=== PATIENT | female | born 1945 | race Caucasian/White ===

== ENCOUNTER 2020-05-13 14:28 | Outpatient (CLI) | payer MEDICARE, SELFPAY ==
--- NOTE | ~2020-05-13 | XR_ITS ---
XR foot LT min 3V DATE: 05/13/2020 14:49 INDICATION: Left foot pain TECHNIQUE: Four views COMPARISON: None FINDINGS: Nonspecific soft tissue swelling. There is mild osteoarthritis at the first metatarsophalan geal joint. A small cortical avulsion fracture of the dorsal aspect of the tarsal navicular bone is suggested but is age indeterminate. Otherwise no fracture, dislocation, periosteal reaction or bone destruction is evident. IMPRESSION: Mild osteoarthritis at first metatarsophalangeal joint Small dorsal tarsal navicular cortical avulsion fracture of undetermined age is suggested Nonspecific soft tissue swelling. Reviewed, dictated and finalized at location A.
== END 2020-05-13 14:29 | disposition home or self-care (01) ==
LOC: ANHIMG 14:34
PROVIDERS: PCP Internal Medicine; Visit Provider Physician Assistant
DX: M79.672 Pain in left foot (principal); M19.072 Primary osteoarthritis, left ankle and foot; S92.315A Nondisplaced fracture of first metatarsal bone, left foot, initial encounter for closed fracture; M79.89 Other specified soft tissue disorders
CPT/HCPCS: 73630

== ENCOUNTER 2020-12-09 14:23 | Outpatient (CLI) | payer MEDICARE, SELFPAY ==
--- NOTE | 2020-12-09 14:35 | ECHO_ITS ---
Patient Info Name: Isela Shah Age: 75 years : 1945 Gender: Female Ht: 49 in Wt: 165 lbs BSA: 1.67 m2 HR: 78 bpm BP: 135 / 71 mmHg Technical Quality: Fair Exam Date: 12/09/2020 2:52 PM Exam Location: [facility] Patient Status: Outpatient Admit Date: 12/09/2020 Staff Ordering Physician: Brian Michelle DO Windows Server Specialist: Maritza Rothman RDCS Attending Provider: Brian Michelle DO Referring Physician: Miguel Angel TILLEY; Exam Type: CA echo doppler color flow Study Info Indications - obstructive hypertrophic cm Complete two-dimensional, color flow and Doppler transthoracic echocardiogram is performed. Summary 1. Complete two-dimensional, color flow and Doppler transthoracic echocardiogram is performed. 2. Left ventricular chamber dimension is normal. 3. Ventricular septum is sigmoid shaped. Mild resting LVOT gradient of peak 8 mmHg and mean 4 mmHg suggests hypertrophic cardiomyopathy. 4. Left ventricular systolic function is normal, estimated at 65-70%. 5. The left ventricular diastolic function is grade I diastolic dysfunction. 6. E/e' 23 is elevated. 7. Left atrial chamber dimension is mildly enlarged. 8. There is moderate aortic valve sclerosis. 9. There is mild aortic valve stenosis with a peak velocity of 231 cm/s, mean gradient of 12 mmHg, and aortic valve area of 1.9 cm2. 10. The mitral valve has moderately calcified annulus. 11. Mild systolic anterior motion of mitral valve. 12. There is mild mitral valve regurgitation. 13. There is trace tricuspid valve regurgitation. 14. No pulmonary hypertension, estimated pulmonary arterial systolic pressure is 31 mmHg. Left Ventricle E/e' 23 is elevated. Ventricular septum is sigmoid shaped. Mild resting LVOT gradient of peak 8 mmHg and mean 4 mmHg suggests hypertrophic cardiomyopathy. Left ventricular chamber dimension is normal. Left ventricular systolic function is normal, estimated at 65-70%. The left ventricular diastolic function is grade I diastolic dysfunction. Right Ventricle Right ventricular chamber dimension is normal. Right ventricular systolic function is normal. Left Atria Left atrial chamber dimension is mildly enlarged. Right Atria Right atrial chamber dimension is normal. Aortic Valve The aortic valve is trileaflet. There is moderate aortic valve sclerosis. There is mild aortic valve stenosis with a peak velocity of 231 cm/s, mean gradient of 12 mmHg, and aortic valve area of 1.9 cm2. There is no aortic valve regurgitation. Pulmonic Valve There is no pulmonic regurgitation. Mitral Valve The mitral valve has moderately calcified annulus. Mild systolic anterior motion of mitral valve. There is no mitral valve stenosis. There is mild mitral valve regurgitation. Tricuspid Valve There is trace tricuspid valve regurgitation. No pulmonary hypertension, estimated pulmonary arterial systolic pressure is 31 mmHg. Pericardium/Pleural There is no pericardial effusion. Inferior Vena Cava Normal inferior vena cava with >50% collapse upon inspiration consistent with normal right atrial pressure, 5 mmHg. Aorta The aortic root size at the sinus of Valsalva is normal. Left Ventricular Outflow Tract Name Value Normal LVOT 2D
== END 2020-12-09 14:24 | disposition home or self-care (01) ==
LOC: ANHCARD 14:25
PROVIDERS: PCP Internal Medicine; Visit Provider Internal Medicine Cardiovascular Disease
DX: I34.0 Nonrheumatic mitral (valve) insufficiency (principal); I36.1 Nonrheumatic tricuspid (valve) insufficiency; I35.1 Nonrheumatic aortic (valve) insufficiency
CPT/HCPCS: 93306

== ENCOUNTER 2021-01-15 12:27 | Inpatient (IN) | payer MEDICARE, SELFPAY ==
[2021-01-15] VITALS (8 sets, daily range): BP systolic 144–190; BP diastolic 43–104; PULSE 70–79; RESP 14–21; TEMP 36.2–36.8; O2SAT 97–99; BMI 35.2
--- NOTE | ~2021-01-15 | CT_ITS ---
EXAMINATION: CT brain wo con EXAM DATE: 01/15/2021 13:27 INDICATION: Right upper ext weakness. TECHNIQUE: Spiral CT of the head was performed without contrast. Axial, coronal and sagittal images were reviewed. The dose-length product (DLP) for this examination was 605.33 mGy-cm. The exposure w as tailored according to patient size, and iterative reconstruction (ASIR) was used as additional dos e reduction technique. There is no prior study for comparison. FINDINGS: Possible small acute infarction in the left parieto-occipital lobe, finding indicated on ax ial image 34. There is no acute intraparenchymal hemorrhage. No evidence of intraparenchymal brain m ass lesion. Mild cerebral atrophy. There is no mass effect or midline shift. The ventricles are no rmal in size. There are no extra-axial collections. There are no acute calvarial fractures. The orb its are unremarkable. Soft tissue is unremarkable. The visualized sinuses and mastoid air cells are well aerated. IMPRESSION: 1. Possible small acute left occipitoparietal lobe infarction. Reviewed, dictated and finalized at location A. [employer]OR [employer]
--- NOTE | ~2021-01-15 | CT_ITS ---
EXAMINATION: CTA brain carotid EXAM DATE: 01/16/2021 15:17 INDICATION: Stroke. TECHNIQUE: Noncontrast head CT. Spiral CTA of the carotid arteries was performed with intravenous i njection 100 cc of Omnipaque 350. Axial, coronal, sagittal reformatted images reviewed. Additional r eformatted images created on dedicated 3-D workstation. NASCET comparable standard used to assess th e degree of arterial stenosis. Spiral CT angiogram cerebral arteries performed with the same intrave nous injection of contrast. Source images of the brain CTA transferred to dedicated workstation for 3 -D rotational image creation. Coronal, sagittal maximum intensity pixel images also reviewed. The d ose-length product (DLP) for this examination was 1373.49 mGy-cm. The exposure was tailored accordi ng to patient size, and iterative reconstruction (ASIR) was used as additional dose reduction techniq ue. Correlation is made to head CT from yesterday. FINDINGS: Left carotid bulb has large amount of atherosclerotic disease with string sign, near comple te occlusion. There is significantly diminished caliber to the ICA distal to this consistent with chani w-limiting stenosis. There is mild right carotid bulb plaque without stenosis. Bilateral carotid siph on arterial sclerosis with regions of moderate stenosis. Vertebral arteries are codominant. There is no carotid or vertebral basilar arterial dissection or fibromuscular dysplasia. There are no cerebral artery aneurysms. There is symmetric cerebral artery arborization. The sagittal, transverse and sigm oid sinuses enhance normally, no venous sinus thrombosis. Internal cerebral veins also enhance normal ly. Interval development of multiple small regions of left frontoparietal hypodensity, small acute infarc tions as seen on MR earlier today. This is in the watershed distribution between between cerebral art eries, could be caused by hypoperfusion from the carotid bulb stenosis. There is no acute intraparenc hymal hemorrhage. No evidence of intraparenchymal brain mass lesion. There is no mass effect or midl ine shift. There is no obstructive hydrocephalus suspected. There are no extra-axial collections. T here are no calvarial acute fractures. IMPRESSION: 1. Near occlusion left carotid bulb with diminished ICA caliber, flow-limiting stenosis. Acute left- sided infarctions involving watershed distribution, likely result of hypoperfusion. 2. Mild right carotid bulb plaque, 0% stenosis. 3. Carotid siphon arterial sclerosis. I discussed this case with Radha Pablo PA-C at 01/16/2021 15:30 SENIOR MICROSTRATEGY DEVELOPER. Recommend vascular consult a nd not aggressively controlling any high blood pressure at this time. Reviewed, dictated and finalized at location B. OR MICROSTRATEGY DEVELOPER IMPRESSION: 1. Near occlusion left carotid bulb with diminished ICA caliber, flow-limiting stenosis. Acute left-sided infarctions involving watershed distribution, likel y result of hypoperfusion. 2. Mild right carotid bulb plaque, 0% stenosis. 3. Carotid siphon arterial sclerosis. I discussed this case with Radha Pablo PA-C at 01/16/2021 15:30 SENIOR MICROSTRATEGY DEVELOPER. Recomm end vascular consult and not aggressively controlling any high blood pressure a t this time.
--- NOTE | ~2021-01-15 | MR_ITS ---
EXAMINATION: MR brain/brain stem wo/w con DATE: 01/16/2021 08:47 INDICATION: Cerebral vascular accident. Right hemiparesis. TECHNIQUE: Magnetic resonance imaging (MRI) of the brain and brainstem was performed without and with 14 mL MultiHance intravenous contrast. Sequences included sagittal and axial T1-weighted FSE, axial diffusion-weighted FS EPI, axial T2*-weighted GRE, axial T2-weighted FLAIR Propeller, and axial T2-we ighted Propeller. Postcontrast sequences included axial and coronal T1-weighted FSE. Apparent diffusi on coefficient (ADC) maps were created. COMPARISON: Head CT 01/15/2021 FINDINGS: There is a large distribution of patchy acute infarcts involving the left frontal, temporal , parietal, and occipital lobes in the expected distribution of left middle cerebral artery. There is no intracranial hemorrhage or abnormal mass lesion. There are scattered areas of nonspecific increas ed T2-weighted signal intensity in the cerebral white matter, which is within normal limits for the p atient's age. The ventricles are normal in size. The orbits are normal. There is mild mucosal thicken ing in the ethmoid sinuses. The mastoid air cells are normal. IMPRESSION: 1. Large distribution of patchy acute infarcts in the distribution of the left middle cerebral artery . Reviewed, dictated and finalized at location A. ROOM ATTENDANT IMPRESSION: 1. Large distribution of patchy acute infarcts in the distribution of the left middle cerebral artery.
--- NOTE | ~2021-01-15 | US_ITS ---
EXAMINATION: US carotid duplex BI EXAM DATE: 01/16/2021 09:18 INDICATION: Multiple left cortical infarctions. TECHNIQUE: Grayscale, color and pulsed Doppler images of the cervical carotid arteries were obtained . The degree of vessel stenosis is placed in one of the following categories: normal, <50% stenosis, 50-69% stenosis, >=70% stenosis but less than near-occlusion, near-occlusion, or occlusion. Note that percent stenosis relative to normal distal artery lumen diameter is indirectly measured from velocit y measurements as described by Parveen, et al. Radiology 2003; 229:340-346. There is no prior study fo r comparison. FINDINGS: RIGHT SIDE: Right common carotid artery peak systolic velocity (PSV in cm/s): 92 Right bulb/internal carotid artery peak systolic velocity (PSV in cm/s): 74 Right internal carotid artery end diastolic velocity (EDV in cm/s): 16 Right ICA/CCA peak systolic ratio: 0.8 Right external carotid artery peak systolic velocity (PSV in cm/s): 102 Right vertebral artery antegrade flow: yes There is mild carotid bulb plaque. Velocity and Doppler waveforms in the common and internal carotid arteries is normal. LEFT SIDE: Left common carotid artery peak systolic velocity (PSV in cm/s): 62 Left bulb/internal carotid artery peak systolic velocity (PSV in cm/s): 185 Left internal carotid artery end diastolic velocity (EDV in cm/s): 35 Left ICA/CCA peak systolic ratio: 3.0 Left external carotid artery peak systolic velocity (PSV in cm/s): 114 Left vertebral artery antegrade flow: yes There is mild carotid bulb plaque. Velocity and Doppler waveforms in the common and internal carotid arteries is normal. IMPRESSION: 1. Less than 50 percent stenosis in the right internal carotid artery. 2. Less than 50 percent stenosis in the left internal carotid artery. Reviewed, dictated and finalized at location B. RESSOR BATTERY PELLETS
--- NOTE | ~2021-01-15 | US_ITS ---
EXAMINATION: US venous doppler UE RT EXAM DATE: 01/16/2021 09:19 INDICATION: Right arm swelling. Edema. TECHNIQUE: Multiple grayscale, color flow, Doppler sonographic images of the right upper extremity ve ins obtained by technologist. Compression was performed where able. There is no prior study for rené cordero. FINDINGS: Right upper extremity: Jugular vein: ------------> Normal. Subclavian vein: --------> Normal. Axillary vein:------------> Normal. Brachial vein:-----------> Normal. Basilic vein: ------------> Normal. Cephalic vein: ----------> Normal. Radial vein: ------------> Normal. Ulnar vein: > Normal. IMPRESSION: No deep venous thrombosis of the right upper extremity. Reviewed, dictated and finalized at location B. LE SETTER
--- NOTE | 2021-01-15 13:19 | ED.NEUROSD ---
HPI - Neuro Symptoms/Deficit General Chief Complaint: Extremity Injury, Upper Stated Complaint: right arm swelling and weakness since sats Time Seen by Provider: 01/15/21 12:55 Source: patient Mode of arrival: ambulatory Limitations: no limitations History of Present Illness HPI Narrative: Patient is a 75-year-old female complaining of right upper extremity weakness and numbness that started 4 days ago. Patient denies any speech or visual disturbance, unsteady gait, headache, dizziness, chest pain, shortness of breath abdominal pain, fever or chills. Related Data Home Medications Medication Instructions Recorded Confirmed ascorbic acid (vitamin C) 1,000 mg 1 gm PO DAILY 01/26/20 11/18/20 tablet coenzyme Q10 100 mg capsule 100 mg PO DAILY 01/26/20 11/18/20 multivitamin 1 tablet PO DAILY 01/26/20 11/18/20 vitamin E 1,000 unit/112 gram unit TOPICAL 01/26/20 11/18/20 topical cream cholecalciferol (vitamin D3) 25 25 mcg PO DAILY 05/19/20 11/18/20 mcg (1,000 unit) capsule mecobalamin (vitamin B12) 1,000 1,000 mcg PO DAILY 05/19/20 11/18/20 mcg chewable tablet allopurinol 300 mg tablet 300 mg PO DAILY 11/16/20 11/18/20 Allergies Allergy/AdvReac Type Severity Reaction Status Date / Time No Known Allergies Allergy Mild Verified 11/17/20 15:37 Review of Systems Review of Systems: All systems reviewed & are unremarkable except as noted in HPI and below Constitutional: Constitutional: Denies body ache(s), Denies chills, Denies excessive sweating, Denies fatigue, Denies fever(s), Denies headache(s), Denies lethargy, Denies malaise, Denies weakness and Denies weight loss Eyes: Eyes: Denies blurry vision, Denies change in vision and Denies loss of vision ENT: Denies dizziness, Denies ear discharge, Denies headache(s), Denies lip swelling, Denies epistaxis, Denies nasal congestion, Denies neck pain, Denies throat swelling and Denies tongue swelling Cardiovascular: Cardiovascular: Denies chest pain, Denies chest pain at rest, Denies chest pain with activity, Denies diaphoresis, Denies rapid heart rate, Denies edema, Denies irregular heart rhythm, Denies lightheadedness, Denies palpitations, Denies dyspnea and Denies dyspnea on exertion Respiratory: Respiratory: Denies chest congestion, Denies cough, Denies hemoptysis, Denies dyspnea and Denies dyspnea on exertion Gastrointestinal: Gastrointestinal: Denies abdominal pain, Denies melena, Denies hematochezia, Denies diarrhea, Denies nausea, Denies vomiting and Denies hematemesis Musculoskeletal: Musculoskeletal: Denies abnormal gait, Denies deformity, Denies joint swelling, Denies limited range of motion, Denies neck pain and Denies numbness Neurologic: Denies Abnormal speech present, Denies abnormal gait, Denies confusion, Denies dizziness, Denies headache(s), Denies loss of vision, Denies Other visual disturbances, Denies Sensory deficit (Neuro) and Denies weakness Psychiatric: Psychiatric: Denies confusion, Denies depression, Denies auditory hallucinations, Denies homicidal ideation and Denies suicidal ideation Endocrine: Endocrine: Denies cold intolerance, Denies excessive sweating, Denies fatigue, Denies heat intolerance and Denies palpitations Hematologic/Lymphatic: Hematologic/Lymphatic: Denies easy bleeding and Denies easy bruising Allergic/Immunologic: Allergic/Immunologic: Denies lip swelling, Denies throat swelling and Denies tongue swelling PMFSH Past Medical History Medical History (Updated 01/15/21 @ 13:27 by Reymundo Solorzano MD) Essential hypertension Hyperlipidemia Surgical History Surgical History H/O knee surgery Family History Family History Sibling Family history of diabetes mellitus in first degree relative Mother Family history of pancreatic cancer Patient's mother is Father Patient's father is Family history of c
--- NOTE | 2021-01-15 13:27 | ECG_ITS ---
Measurements Intervals [place] Rate: 72 P: 56 HI: 203 QRS: -24 QRSD: 89 T: 51 QT: 396 QTc: 435 Interpretive Statements SINUS RHYTHM VOLTAGE CRITERIA FOR LVH BORDERLINE R WAVE PROGRESSION, ANTERIOR LEADS MINIMAL Q WAVES- HIGH LATERAL LEADS BASELINE ARTIFACT- II, III, AVL, AVF BORDERLINE ECG Electronically Signed On 01-15-2021 14:25:13 PHYSICIAN GENERAL PRACTICE by Brian Michelle D.O.
[2021-01-15] MEDS: LACTATED RINGERS 1,000 ML 125 ML IV CONT (13:41)
[2021-01-15 14:12] LABS: Basophils Absolute Auto 0.1 K/mm3 (0.0-0.1); Basophils Percent Auto 1.1 % (0.2-1.2); Eosinophils Absolute Auto 0.3 K/mm3 (0-0.3); Eosinophils Percent Auto 2.5 % (0-4.4); Hematocrit 47.2 % (37.0-47.0); Hemoglobin 15.3 g/dL (12.0-15.0); Immature Granulocyte Absolute 0.04 K/mm3 (0.00-0.031); Immature Granulocyte Percent A 0.4 % (0-0.5); Lymphocytes Absolute Auto 2.54 K/mm3 (0.9-3.2); Lymphocytes Percent Auto 25.7 % (18.3-44.2); Mean Corpuscular HGB Conc 32.4 g/dl (32-36); Mean Corpuscular Hemoglobin 30.4 pg (26-34); Mean Corpuscular Volume 93.7 fl (80-100); Mean Platelet Volume 11.4 fl (7.4-10.4); Monocytes Absolute Auto 0.8 K/mm3 (0.1-0.6); Monocytes Percent Auto 8.1 % (2.6-8.5); Neutrophils Absolute Auto 6.1 K/mm3 (1.3-6.7); Neutrophils Percent Auto 62.2 % (45.5-73.1); Platelet Count Result 243 k/mm3 (150-375); Red Blood Count 5.04 M/mm3 (4.2-5.4); Red Cell Distribution Width 14.6 % (11.5-14.5); White Blood Count 9.9 K/mm3 (4.5-10.0)
[2021-01-15 14:24] LABS: Prothrombin Time 13.4 Seconds (11.1-14.7)
[2021-01-15 14:25] LABS: Partial Thromboplastin Time 27.2 SECONDS (22.3-36.8)
[2021-01-15 14:31] LABS: Alanine Aminotransferase 17 U/L (4-35); Albumin Level 4.3 g/dL (3.5-5.1); Alkaline Phosphatase 109 U/L (38-126); Anion Gap 4 mmol/L (8-16); Aspartate Amino Transferase 28 U/L (14-36); Bilirubin,Total 0.5 mg/dL (0.2-1.3); Blood Urea Nitrogen 14 mg/dL (7-17); Calcium 9.5 mg/dL (8.4-10.2); Carbon Dioxide 33 mmol/L (22-30); Chloride 105 mmol/L (98-107); Estimated Glomerular Filt Rate > 60; Glucose 93 mg/dL (65-105); Potassium 4.2 mmol/L (3.4-5.0); Sodium 142 mmol/L (137-145)
[2021-01-15 14:45] LABS: Troponin I < 0.012 ng/mL (0.000-0.034)
[2021-01-15] MEDS: ASPIRIN 325 MG TABLET PO (15:34)
[2021-01-15] MEDS: LABETALOL HCL INJ 100 MG/20 ML VIAL 10 MG IV PUSH (15:36)
--- NOTE | 2021-01-15 17:52 | PC.NURSE ---
This patient, Isela Shah, was admitted to Medical Room 340-01. Patient/family oriented to hospital policies and general routines including ID bracelet, bed and alarms, visiting hours, pain management, procedures, bathroom and other care routines, personal items, smoking policy, room service/diet, and visiting hours. Information on how to activate the Rapid Response Team has been discussed. Patient/Family are encouraged to report perceived risks to care and to ask questions if they do not understand what they are told or what they should do.
[2021-01-15 18:21] LABS: Troponin I < 0.012 ng/mL (0.000-0.034)
--- NOTE | 2021-01-15 18:47 | PC.NURSE ---
Son-in-law with patient. Patient nor son-in-law knows patient home medications. Home medication list left at home.
--- NOTE | 2021-01-15 18:50 | PC.NURSE ---
[facility] pharmacy closed.
--- NOTE | 2021-01-15 19:15 | PM.IMHP ---
H&P: HPI History of Present Illness Date/Time: 01/15/21 19:15 Chief Complaint: Right arm swelling and weakness. Narrative: This is a pleasant 75-year-old female with hypertension, hyperlipidemia, mild hypertrophic cardiomyopathy, and gout who presented to the emergency department earlier today from home for evaluation of right arm swelling and weakness. On afternoon she noticed that her right arm felt a little bit weak and got gradually more weak as the day progressed. Her symptoms were little bit better on Saturday morning but the right arm became profoundly more weak later that evening with numbness. It is now to the point where she is unable to lift her arm up without the help of her other hand, and she has also noticed swelling in the right arm. Brain CT today showed a possible small acute left occipital parietal lobe infarction and she is being admitted in this setting. Aside from the right arm weakness and numbness she has no other complaints and specifically denies auditory visual changes, vertigo, right leg weakness, facial droop, dysphagia, and dysarthria. She has no known history of cardiac dysrhythmia or carotid artery disease. She admits that her blood pressures are not always very well controlled and that she does not always take an aspirin daily as instructed. Review of Systems Review of Systems: Narrative: Twelve systems were reviewed with pertinent positives and negatives as per HPI. No fever, chills, or sweats. She denies recent cold and flu symptoms. No known exposure to those positive for COVID-19. Except as documented, all other systems were reviewed and are negative. [facility] Past Medical History Medical History (Updated 01/15/21 @ 22:56 by Felicitas Garcia PA-C) Arthritis Diverticulitis Essential hypertension Gout Hemorrhoids Hyperlipidemia Hypertrophic obstructive cardiomyopathy Followed by Dr. Brian Michelle. Macular degeneration Overflow stress urinary incontinence in female Surgical History Surgical History (Updated 01/15/21 @ 22:52 by Felicitas Garcia PA-C) History of ankle surgery ORIF of ankle fracture. History of arthroscopic knee surgery History of cervical polypectomy Family History Family History Sibling Family history of diabetes mellitus in first degree relative Mother Family history of pancreatic cancer Patient's mother is Father Patient's father is Family history of cardiovascular disease Family history of dementia Social History Social History (Updated 01/15/21 @ 22:53 by Felicitas Garcia PA-C) Social History: Surrogate decision maker: Yue Leija, daughter. Code status: Full code. 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 Gender identity (if verbalized by the patient): Female Spiritual care concerns: No Meds Home Medications and Allergies Home Medications Medication Instructions Recorded Confirmed Type ascorbic acid (vitamin C) 1,000 mg 1 gm PO DAILY 01/26/20 11/18/20 History tablet coenzyme Q10 100 mg capsule 100 mg PO DAILY 01/26/20 11/18/20 History multivitamin 1 tablet PO DAILY 01/26/20 11/18/20 History vitamin E 1,000 unit/112 gram unit TOPICAL 01/26/20 11/18/20 History topical cream metoprolol succinate 25 mg capsule 25 mg PO DAILY #90 each 02/25/20 11/18/20 Rx sprinkle, ext. release 24 hr cholecalciferol (vitamin D3) 25 25 mcg PO DAILY 05/19/20 11/18/20 History mcg (1,0
[2021-01-16] VITALS (10 sets, daily range): BP systolic 138–176; BP diastolic 62–75; PULSE 72–88; RESP 14–18; TEMP 36.2–36.9; O2SAT 92–98; BMI 36.3
--- NOTE | 2021-01-16 | ECHO_ITS ---
Patient Info Name: Isela Shah Age: 75 years : 1945 Gender: Female Ht: 57 in Wt: 162 lbs BSA: 1.76 m2 HR: 73 bpm BP: 160 / 67 mmHg Technical Quality: Good Exam Date: 01/16/2021 10:19 AM Exam Location: [facility] Patient Status: Inpatient Admit Date: 01/15/2021 Staff Ordering Physician: Felicitas Garcia PA-C Proposal Writer: Cristian Thornton RDCS, RT Attending Provider: Radha Pablo PA-C Referring Physician: Jose GARNER; Exam Type: CA echo doppler color flow Study Info Indications I63.119 - Cerebral infarction due to embolism of unspecified vertebral artery I10 - Essential (primary) hypertension Complete two-dimensional, color flow and Doppler transthoracic echocardiogram is performed. Summary 1. Complete two-dimensional, color flow and Doppler transthoracic echocardiogram is performed. 2. Left ventricular chamber dimension is normal. 3. Left ventricular systolic function is normal, estimated at 65-70%. 4. There is mildly increased left ventricular wall thickness. 5. The left ventricular diastolic function is grade I diastolic dysfunction. 6. Ventricular septum is sigmoid shaped. This is suggestive of hypertrophic cardiomyopathy with resting LVOT gradient peak 6 mmHg and mean 3 mmHg which is non-obstructive. 7. E/e' 23 is significantly elevated. 8. Global longitudinal strain is abnormal at -15.4%. 9. Left atrial chamber dimension is moderately enlarged. 10. There is severe aortic valve sclerosis. 11. There is mild aortic valve stenosis with a peak velocity of 215 cm/s, mean gradient of 9 mmHg, and aortic valve area of 1.8 cm2. 12. The mitral valve has moderately calcified annulus. 13. There is mild mitral valve regurgitation. 14. There is trace tricuspid valve regurgitation. Left Ventricle E/e' 23 is significantly elevated. Ventricular septum is sigmoid shaped. This is suggestive of hypertrophic cardiomyopathy with resting LVOT gradient peak 6 mmHg and mean 3 mmHg which is non-obstructive. Global longitudinal strain is abnormal at -15.4%. Left ventricular chamber dimension is normal. Left ventricular systolic function is normal, estimated at 65-70%. There is mildly increased left ventricular wall thickness. The left ventricular diastolic function is grade I diastolic dysfunction. Right Ventricle Right ventricular chamber dimension is normal. Right ventricular systolic function is normal. Left Atria Left atrial chamber dimension is moderately enlarged. Right Atria Right atrial chamber dimension is normal. Aortic Valve The aortic valve is trileaflet. There is severe aortic valve sclerosis. There is mild aortic valve stenosis with a peak velocity of 215 cm/s, mean gradient of 9 mmHg, and aortic valve area of 1.8 cm2. There is no aortic valve regurgitation. Pulmonic Valve There is no pulmonic regurgitation. Mitral Valve The mitral valve has moderately calcified annulus. There is no mitral valve stenosis. There is mild mitral valve regurgitation. Tricuspid Valve RVSP is not calculated due to an inadequate TR jet. There is trace tricuspid valve regurgitation. Pericardium/Pleural There is no pericardial effusion. Inferior Vena Cava Normal inferior vena cava with >50% collapse upon inspiration consistent with normal right atrial pressure, 5 mmHg. Aorta The aortic root size at the sinus of Valsalva is normal. Left Ventricular Outflow Tract
[2021-01-16 05:23] LABS: Hematocrit 38.4 % (37.0-47.0); Hemoglobin 12.9 g/dL (12.0-15.0); Mean Corpuscular HGB Conc 33.6 g/dl (32-36); Mean Corpuscular Hemoglobin 30.6 pg (26-34); Mean Platelet Volume 11.2 fl (7.4-10.4); Platelet Count Result 219 k/mm3 (150-375); Red Blood Count 4.22 M/mm3 (4.2-5.4); Red Cell Distribution Width 14.3 % (11.5-14.5); White Blood Count 11.1 K/mm3 (4.5-10.0)
[2021-01-16 05:35] LABS: Alanine Aminotransferase 14 U/L (4-35); Albumin Level 3.5 g/dL (3.5-5.1); Alkaline Phosphatase 82 U/L (38-126); Anion Gap 1 mmol/L (8-16); Aspartate Amino Transferase 22 U/L (14-36); Bilirubin,Total 0.4 mg/dL (0.2-1.3); Blood Urea Nitrogen 13 mg/dL (7-17); Calcium 8.8 mg/dL (8.4-10.2); Carbon Dioxide 29 mmol/L (22-30); Chloride 108 mmol/L (98-107); Cholesterol 159 mg/dL (0-200); Estimated Glomerular Filt Rate > 60; Glucose 96 mg/dL (65-105); HDL Direct 44 mg/dL; Magnesium 1.8 mg/dL (1.6-2.3); Potassium 3.9 mmol/L (3.4-5.0); Sodium 138 mmol/L (137-145); Triglycerides 61 mg/dL (<150)
[2021-01-16 05:46] LABS: LDL Cholesterol Direct 91 mg/dL
--- NOTE | 2021-01-16 09:06 | PC.NURSE ---
Home medications verified per Kate at [facility] pharmacy in [place]. Hospitalist notified.
--- NOTE | 2021-01-16 09:23 | WPDNEURCNPN ---
Assessment and Plan Assessment and plan (1) Acute cerebrovascular accident: Code(s): I63.9 - Cerebral infarction, unspecified Status: Acute (2) Hypertension: Qualifiers: Hypertension type: essential hypertension Qualified Code(s): I10 - Essential (primary) hypertension Code(s): I10 - Essential (primary) hypertension Status: Acute (3) Essential hypertension: Code(s): I10 - Essential (primary) hypertension Status: Acute Additional Plan left hemispheric stroke in the distribution of the left middle cerebral artery with patchy infarct on MRI, initial CT scan of the head was also positive with documentation of small acute left occipital parietal lobe infarction, carotid study revealed less than 50% stenosis bilateral, and as mentioned before right upper extremity venous Doppler study was negative for any deep vein thrombosis, echocardiogram in the past has documented moderately calcified mitral valve mild aortic valve stenosis with sclerosis, repeat echocardiogram is being carried out patient has already been started on aspirin 81 mg daily along with the pravastatin 20 mg daily,she did receive aspirin 325 mg stat once further adjustment will be made accordingly, once the acute evaluation completed she will benefit from the rehab Consult date: 01/16/21 Time Seen: 10:00 HPI: Isela Shah is a 75 year old female 75 years old has been admitted to the hospital for the complaints of right upper extremity weakness and swelling in addition to the ongoing history of 1. Hypertension 2. Hyperlipidemia 3. Mild hypertrophic cardiomyopathy 4. Gout by the time of presentation to the emergency room she was unable to lift her right upper extremity without help but she was also noted to have swelling of the right upper extremity there were no history of any other associated neurological symptomatology. evaluation documented mild leukocytosis with WBC 11.1 hemoglobin 12.9, ultrasound of the right upper extremity today documented no deep venous thrombosis, MRI of the brain with acute infarct in the distribution of the left middle cerebral artery, Doppler study less than 50% stenosis bilaterally Review of Systems Review of Systems: All systems reviewed & are unremarkable except as noted in HPI and below PMFSH Past Medical History Medical History Arthritis Diverticulitis Essential hypertension Gout Hemorrhoids Hyperlipidemia Hypertrophic obstructive cardiomyopathy Followed by Dr. Brian Michelle. Macular degeneration Overflow stress urinary incontinence in female Surgical History Surgical History History of ankle surgery ORIF of ankle fracture. History of arthroscopic knee surgery History of cervical polypectomy Family History Family History Sibling Family history of diabetes mellitus in first degree relative Mother Family history of pancreatic cancer Patient's mother is Father Patient's father is Family history of cardiovascular disease Family history of dementia Social History Social History Social History: Surrogate decision maker: Yue Leija, daughter. Code status: Full code. 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
[2021-01-16] MEDS: ASPIRIN 81 MG ENTERIC TABLET PO (09:37)
[2021-01-16] MEDS: allopurinoL 300 MG TABLET PO (09:56)
[2021-01-16] MEDS: PRAVASTATIN SODIUM 20 MG TABLET BY MOUTH (09:56)
[2021-01-16] MEDS: METOPROLOL SUCCINATE EXT REL 25 MG TABCR PO (09:56)
--- NOTE | 2021-01-16 14:38 | PM.IMPN ---
Progress Note: A&P Assessment and Plan (1) Acute cerebrovascular accident: Code(s): I63.9 - Cerebral infarction, unspecified Status: Acute Assessment and Plan: Patient has a large distribution of patchy acute infarcts in the left middle cerebral artery -carotid ultrasound is normal -echo shows no clot in the atrium -telemetry shows no sign of AFib at this time -NIHSS 6 which according to UTD recommends daily aspirin as treatment and no plavix to prevent HT -Changed pravastatin to atorvastatin -Will need therapy, await [facility] consult -Likely d/c to TRC tomorrow (2) Swelling of right upper extremity: Code(s): M79.89 - Other specified soft tissue disorders Status: Acute Assessment and Plan: No DVT -Continue elevation (3) Hypertension: Qualifiers: Hypertension type: essential hypertension Qualified Code(s): I10 - Essential (primary) hypertension Code(s): I10 - Essential (primary) hypertension Status: Acute Assessment and Plan: Last bp 138/62 -continue home metoprolol (4) Hyperlipidemia: Code(s): E78.5 - Hyperlipidemia, unspecified Status: Acute Assessment and Plan: Atorvastatin started (5) Hypertrophic obstructive cardiomyopathy: Code(s): I42.1 - Obstructive hypertrophic cardiomyopathy Status: Acute Assessment and Plan: Has a hx of this but our echo shows non obstructive hypertrophic cardiomyopathy. -Continue home regimen and follow up with cardiology out Time Spent With Patient Time with patient: 25 - 35 minutes Subjective Date/time seen: 01/16/21 14:38 Interval history: Pt is a 75-year-old female here for new onset stroke. Patient was seen today with daughter at bedside. Patient states she has a completely flaccid right arm and her right foot drags when she walks. She said she is able to speak okay and has had no issues with swallowing. I talked to her and her daughter extensively about the new diagnosis and the plan for therapy. Pt denies nausea, vomiting, fevers, chills, constipation, diarrhea, chest pain, sob, or abdominal pain. Review of Systems Review of Systems: All systems reviewed & are unremarkable except as noted in HPI and below Exam Narrative: Exam Narrative: General: Well developed well nourished patient in NAD HEENT: normocephalic Neck: supple Neuro: Alert and oriented x4. Cranial nerves 2-12 intact. Right arm completely flaccid with no inward toll operator strength or ability to hold against gravity. Lower extremities plantar and dorsiflexion is normal but right leg is weak when lifting off the bed. I did not personally see the patient walk but the nurse states she is dragging her right foot a bit CV:RRR, telemetry shows no alarm reviews other than occasional PVCs Resp:CTA Abd: Soft, non distended. No pain to palpation. Positive bowel sounds Extremities: No swelling, erythema, or pain to palpation of the lower extremity. Right arm swelling has improved with elevation. Objective Data Vital Signs Vital Signs: Vital Signs - 24 hr 01/15/21 14:59 01/15/21 15:37 01/15/21 15:48 Temperature Pulse Rate 77 75 72 Respiratory Rate 19 20 20 Blood Pressure 190/84 H 187/80 H 144/43 H Pulse Oximetry 97 97 99 01/15/21 17:28 01/15/21 17:54 01/15/21 19:32 Temperature 97.1 F L 98.2 F Pulse Rate 79 78 77 Respiratory Rate 21 H 18 14 Blood Pressure 145/70 H 175/73 H 151/71 H Pulse Oximetry 99 98 98 01/16/21 00:00 01/16/21 04:00 01/16/21 05:11 Temperature 98.5 F Pulse Rate 81 79 85 Respiratory Rate 14 Blood Pressure 160/67 H Pulse Oximetry 92 01/16/21 08:00 01/16/21 09:56 01/16/21 12:00 Temperature Pulse Rate 88 77 81 Respiratory Rate Blood Pressure Pulse Oximetry Intake/Output Intake/Output: Intake & Output 01/13/21 01/14/21 01/15/21 01/16/21 23:59 23:59 23:59 23:59 Intake Total 1280 Output Total 1150 Balance 130 Meds/
--- NOTE | 2021-01-16 18:54 | PC.NURSE ---
Patient being transferred to [facility] [address] bed 2; Report to BREANN Meng. [place] ETA [phone], trip number [phone].
[2021-01-17] VITALS: PULSE 67
[2021-01-17 12:21] LABS: SARS-CoV-2 RNA PCR Negative
--- NOTE | 2021-01-19 15:26 | PM.TDS ---
Transfer Discharge Sum: Prov Provider Date of admission: 01/15/21 16:26 Primary care physician: Cosme Ashton DO Admitting clinician: Kali Vance MD Consults: 01/15/21 15:39 Consult to Physician Routine Comment: Consulting Provider: Agustín Hodges Reason for consultation: ACUTE CVA Has provider been notified: Yes Attending physician on discharge: Patrick Stokes Discharging clinician: Radha Pablo Receiving physician/facility: [facility] DS: Admitting Diagnosis Admitting Diagnosis Admitting Diagnosis: Acute CVA DS: Discharge Diagnosis Discharge Diagnosis (1) Acute cerebrovascular accident: Code(s): I63.9 - Cerebral infarction, unspecified Status: Acute Assessment and Plan: Patient has a large distribution of patchy acute infarcts in the left middle cerebral artery -carotid ultrasound is normal -echo shows no clot in the atrium -telemetry shows no sign of AFib at this time -NIHSS 6 which according to UTD recommends daily aspirin as treatment and no plavix to prevent HT -Changed pravastatin to atorvastatin -CTA showed: Near occlusion left carotid bulb with diminished ICA caliber, flow-limiting stenosis. Acute left-sided infarctions involving watershed distribution, likely result of hypoperfusion. -Spoke with Dr. Parker at [facility] who accepted the pt in transfer for possible carotid endarterectomy (2) Swelling of right upper extremity: Code(s): M79.89 - Other specified soft tissue disorders Status: Acute Assessment and Plan: No DVT -Continue elevation (3) Hypertension: Qualifiers: Hypertension type: essential hypertension Qualified Code(s): I10 - Essential (primary) hypertension Code(s): I10 - Essential (primary) hypertension Status: Acute Assessment and Plan: Last bp 176/75 -recommend to keep the blood pressure high to help with perfusion. Metoprolol held (4) Hyperlipidemia: Code(s): E78.5 - Hyperlipidemia, unspecified Status: Acute Assessment and Plan: Atorvastatin started (5) Hypertrophic obstructive cardiomyopathy: Code(s): I42.1 - Obstructive hypertrophic cardiomyopathy Status: Acute Assessment and Plan: Has a hx of this but our echo shows non obstructive hypertrophic cardiomyopathy. -follow up with cardiology out Transfer Discharge Sum: Med Medications Active and Home Medications: Home Medications ascorbic acid (vitamin C) 1,000 mg tablet 1 gm PO DAILY 01/26/20 [History Confirmed 01/16/21] coenzyme Q10 100 mg capsule 100 mg PO DAILY 01/26/20 [History Confirmed 01/16/21] multivitamin 1 tablet PO DAILY 01/26/20 [History Confirmed 01/16/21] cholecalciferol (vitamin D3) 25 mcg (1,000 unit) capsule 25 mcg PO DAILY 05/19/20 [History Confirmed 01/16/21] mecobalamin (vitamin B12) 1,000 mcg chewable tablet 1,000 mcg PO DAILY 05/19/20 [History Confirmed 01/16/21] pravastatin 10 mg tablet 10 mg PO DAILY #90 tablet 07/06/20 [Rx Confirmed 01/16/21] allopurinol 300 mg tablet 300 mg PO DAILY 11/16/20 [History Confirmed 01/16/21] metoprolol succinate 25 mg PO DAILY 01/16/21 [History Confirmed 01/16/21] pravastatin 10 mg DAILY 01/16/21 [History Confirmed 01/16/21] Transfer Discharge Sum: Hosp Hospital Course Hospital course: Isela Shah is a 75 year old female who presented emergency room for right-sided weakness found to have acute CVA but was outside of the window the patient has been having symptoms for multiple days. She was admitted to the hospital service and underwent a CTA which showed Near occlusion left carotid bulb with diminished ICA caliber, flow-limiting stenosis. Acute left-sided infarctions involving watershed distribution, likely result of hypoperfusion. I contacted Dr. Parker at [facility] who recommended keeping her blood pressure high and transferring for possible carotid endarterectomy. The patient and family were educated about
== END 2021-01-17 01:25 | disposition short-term general hospital (02) | DRG 65 ==
LOC: ANHED 15:49 → ANH3MED 18:19
PROVIDERS: Physician Assistant; Admitting Provider Family Medicine; Emergency Provider Emergency Medicine; PCP Internal Medicine; Visit Provider Physician Assistant
DX: I63.512 Cerebral infarction due to unspecified occlusion or stenosis of left middle cerebral artery (principal); I42.1 Obstructive hypertrophic cardiomyopathy; G83.21 Monoplegia of upper limb affecting right dominant side; R29.706 NIHSS score 6; Z20.822 Contact with and (suspected) exposure to COVID-19; M79.89 Other specified soft tissue disorders; I10 Essential (primary) hypertension; E78.5 Hyperlipidemia, unspecified; M10.9 Gout, unspecified; Z28.21 Immunization not carried out because of patient refusal; Z87.891 Personal history of nicotine dependence; Z79.899 Other long term (current) drug therapy
CPT/HCPCS: 36415; 70450; 70496; 70498; 70553; 80053; 80061; 83735; 84443; 84484; 85025; 85027; 85610; 85730; 93005; 93306; 93880; 93971; 96374; 97161; 97165; 99285; A9270; A9577; C9803; G0378; J7120; Q9967; U0003; U0005

== ENCOUNTER 2021-01-24 18:55 | IRF | payer MEDICARE, SELFPAY ==
--- NOTE | 2021-01-24 18:55 | ADMGEN ---
This patient, Isela Shah, was admitted to [facility] Room 223-01. Patient/family oriented to hospital policies and general routines including ID bracelet, bed and alarms, visiting hours, pain management, procedures, bathroom and other care routines, personal items, smoking policy, room service/diet, and visiting hours. Information on how to activate the Rapid Response Team has been discussed. Patient/Family are encouraged to report perceived risks to care and to ask questions if they do not understand what they are told or what they should do.
[2021-01-24 19:55] VITALS: BMI 32.9
[2021-01-24 22:00] VITALS: BP 133/56; PULSE 61; RESP 16; TEMP 36.1; O2SAT 100
[2021-01-24] MEDS: TICAGRELOR 90 MG TABLET PO (22:44)
[2021-01-25 05:11] LABS: Basophils Absolute Auto 0.1 K/mm3 (0.0-0.1); Basophils Percent Auto 0.8 % (0.2-1.2); Eosinophils Absolute Auto 0.4 K/mm3 (0-0.3); Eosinophils Percent Auto 3.1 % (0-4.4); Hematocrit 32.9 % (37.0-47.0); Hemoglobin 10.7 g/dL (12.0-15.0); Immature Granulocyte Absolute 0.12 K/mm3 (0.00-0.031); Lymphocytes Absolute Auto 2.07 K/mm3 (0.9-3.2); Lymphocytes Percent Auto 18.1 % (18.3-44.2); Mean Corpuscular HGB Conc 32.5 g/dl (32-36); Mean Corpuscular Hemoglobin 30.7 pg (26-34); Mean Corpuscular Volume 94.5 fl (80-100); Monocytes Percent Auto 8.5 % (2.6-8.5); Neutrophils Absolute Auto 7.8 K/mm3 (1.3-6.7); Neutrophils Percent Auto 68.5 % (45.5-73.1); Platelet Count Result 275 k/mm3 (150-375); Red Blood Count 3.48 M/mm3 (4.2-5.4); Red Cell Distribution Width 14.7 % (11.5-14.5); White Blood Count 11.4 K/mm3 (4.5-10.0)
[2021-01-25 05:21] LABS: Anion Gap 3 mmol/L (8-16); Blood Urea Nitrogen 17 mg/dL (7-17); Calcium 8.6 mg/dL (8.4-10.2); Carbon Dioxide 30 mmol/L (22-30); Chloride 107 mmol/L (98-107); Cholesterol 117 mg/dL (0-200); Estimated Glomerular Filt Rate > 60; Glucose 99 mg/dL (65-105); HDL Direct 34 mg/dL; Potassium 3.9 mmol/L (3.4-5.0); Sodium 140 mmol/L (137-145); Triglycerides 64 mg/dL (<150)
[2021-01-25 05:32] LABS: LDL Cholesterol Direct 63 mg/dL
[2021-01-25 05:43] VITALS: BP 119/51; PULSE 88; RESP 16; TEMP 36.2; O2SAT 100
[2021-01-25 08:00] VITALS: PULSE 88; RESP 16; O2SAT 100
[2021-01-25] MEDS: ASPIRIN 81 MG ENTERIC TABLET PO (08:54)
[2021-01-25] MEDS: ATORVASTATIN 40 MG TABLET PO (08:55)
[2021-01-25] MEDS: ASCORBIC ACID 500 MG TABLET 1000 MG PO (08:55)
[2021-01-25] MEDS: allopurinoL 300 MG TABLET PO (08:55)
[2021-01-25] MEDS: TICAGRELOR 90 MG TABLET PO ×2 (08:55→21:35)
[2021-01-25] MEDS: lisinopriL 20 MG TABLET PO (08:55)
--- NOTE | 2021-01-25 10:54 | WPDREHABHP ---
H&P: HPI History of Present Illness Date/Time: 01/25/21 10:54 HISTORY OF PRESENT ILLNESS: This is a 75-year-old female with past medical history of adiposity, hypertension, hyperlipidemia, hypertrophic cardiomyopathy, and gout who presented [facility] on January 15, 2021 with progressive right upper extremity weakness. 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 CTA showed a near occlusion of her left carotid bulb and left-sided watershed infarcts. Dominic showed an ejection fraction of 76%. MRI showed large distribution of patchy infarcts in distribution of the left middle cerebral artery. Patient was transferred to [facility] on 01/17/2021 for further workup. Cardiology was consulted to assess cardiac risk for CEA and ordered at TTE showing narrowing of the LV OT with no obvious outflow tract obstruction ejection fraction of 70 segs 70 5%, grade 2 diastolic dysfunction with Shabbir enteric shaped LV cavity. Patient was deemed high risk for CEA/stenting. Patient also underwent angioplasty and stenting on 01/21/2021. The procedure was successful with no residual stenosis of the left MCA. There was an attempt to place a distal embolic protection, however, secondary to cervical ICA tortuosity / loops that was unable to be placed. Final angiography demonstrated no evidence of thromboembolic complications. There was a small right groin hematoma noted. Neurology was consulted patient was placed on Plavix and to continue with aspirin 325 mg daily. Postprocedure the patient presented with hypotension and required fluid and then a left Parres Afrin. Patient did require supplemental oxygen but is currently wean. Patient continued to have right upper extremity flaccidity with decreased safety awareness and decreased gross motor control with impaired balance. It was deemed to not be responsive to Plavix and she was switched to Brilinta 45 mg and ASA 325mg. THERAPY WAS INITIATED AT THE ACUTE FACILITY AND THE PATIENT TRANSFERRED TO [facility] ON 01/24/2021 The patient's primary rehab impairment category is Stroke The etiologic diagnosis is left occipital and parietal lobe infarct I saw this patient [id number] on 01/25/2021 COVID: The patient has not traveled outside the [place] or had contact with someone who is ill that has traveled outside the [place] in the past 21 days. Patient has not traveled to an area of the [place] that is experiencing known transmission of the Coronavirus has not had close personal contact with anyone that has. The patient does not have a fever. The patient is not experiencing lower respiratory illness symptoms. COVID test negative on 01/24/2021 FALLS OR SURGERIES: The patient has had major surgeries in the 100 days prior to admission. carotid stent placement They had no falls in the past year. They had no falls with injury in the past year. PAST MEDICAL HISTORY: [] PAST SURGICAL HISTORY: [] SOCIAL HISTORY: [] FAMILY HISTORY: [] PRIOR LEVEL OF FUNCTION: Eating was [INDEPENDENT] Oral Care was [INDEPENDENT] Toileting Hygiene was [INDEPENDENT] Shower/Bathing was [INDEPENDENT] Upper Body Dressing was [INDEPENDENT] Lower Body Dressing was [INDEPENDENT] Donning/[place] Footwear was [INDEPENDENT] Rolling Left and Right was [INDEPENDENT] Sit to Lying was [INDEPENDENT] Lying to Sitting was [INDEPENDENT] Sit to Stand was [INDEPENDENT] Bed to Chair Transfers was [INDEPENDENT] Toilet Transfers was [INDEPENDENT] Walking was [INDEPENDENT] [>500 feet] with [NO DEVICE] Wheelchair Mobility was [NOT APPLICABLE PRIOR TO ADMISSION] Stairs were [INDEPENDENT] CURRENT LEVEL OF FUNCTION: Eating was independent Oral Care was partial Toileting Hygiene was to moderate assist Shower/Bathing was partial to moderate assist Upper Body Dressing was partial to moderate assist Lower Body Dressing was substantial to maximal assistance Donning/Dof
[2021-01-25 11:31] VITALS: PULSE 88; RESP 16; O2SAT 100
[2021-01-25 13:33] VITALS: BMI 32.9
[2021-01-25 14:00] VITALS: BP 114/50; PULSE 87; RESP 18; TEMP 36.2; O2SAT 97
[2021-01-25] MEDS: ACETAMINOPHEN 325 MG TABLET 650 MG PO (14:44)
[2021-01-25] MEDS: CYCLOBENZAPRINE HCL 10 MG TABLET PO (17:43)
[2021-01-25 20:33] VITALS: BP 106/33; PULSE 76; RESP 20; TEMP 35.9; O2SAT 98
[2021-01-26 05:21] VITALS: BP 119/44; PULSE 77; RESP 18; TEMP 36.3; O2SAT 100
[2021-01-26] MEDS: ASCORBIC ACID 500 MG TABLET 1000 MG PO (08:24)
[2021-01-26] MEDS: ATORVASTATIN 40 MG TABLET PO (08:24)
[2021-01-26] MEDS: lisinopriL 20 MG TABLET PO (08:24)
[2021-01-26] MEDS: allopurinoL 300 MG TABLET PO (08:24)
[2021-01-26] MEDS: ASPIRIN 81 MG ENTERIC TABLET PO (08:24)
[2021-01-26] MEDS: TICAGRELOR 90 MG TABLET PO ×2 (08:24→21:12)
--- NOTE | 2021-01-26 11:55 | WPDNEURORHBP ---
Subjective Date/time seen: 01/26/21 11:55 Interval history: this is a 75-year-old female with past medical history of adiposity, hypertension, hyperlipidemia, hypertrophic cardiomyopathy, and gout who presented to [facility] on 01/15/2021 with right-sided weakness. 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 Patient was transferred to [place] on 01/17/2021 for further workup patient underwent angioplasty and stenting on 01/21/2021. Patient will remain on aspirin and Brilinta. Patient is complaining of left lateral hip pain with migration to the lateral hip to above the knee. Of note, patient had the symptoms while at [place]. Patient did state that the Flexeril was useful last night. Patient states pain is better. Review of Systems Review of Systems: All systems reviewed & are unremarkable except as noted in HPI and below Functional Status Ambulation Ability Ability to Ambulate 10 Feet: Contact Guard Ability to Ambulate 50 Feet With 2 Turns: Contact Guard Ambulation Assistive Devices: None Exam Narrative: Exam Narrative: Head is normocephalic.External ocular muscles are intact. Face is symmetrical. Speech is fluent. Cognition reveals problems with response time. Patient has delay with categorization. Sequencing is intact. Heart rate and rhythm is regular. Lungs are clear to auscultation. Abdomen is soft nontender. Musculoskeletal exam: Left upper and lower extremity strength are 4/5 right lower extremity strength is 4- out of 5 right upper extremity tone is flaccid. Strength is 1-2at shoulder, and distally it is trace. transfers at Min assist. Balance is fair plus to good minus. Objective Data Vital Signs Vital Signs: Vital Signs - 24 hr 01/25/21 14:00 01/25/21 20:33 01/26/21 05:21 Temperature 36.2 C L 35.9 C L 36.3 C L Pulse Rate 87 76 77 Respiratory Rate 18 20 18 Blood Pressure 114/50 L 106/33 L 119/44 L Pulse Oximetry 97 98 100 Intake/Output Intake/Output: Intake & Output 01/23/21 01/24/21 01/25/21 01/26/21 23:59 23:59 23:59 23:59 Intake Total 960 240 Balance 960 240 Meds/Results Medications: Active Medications Generic Name Dose Route Start Last Admin Trade Name Freq PRN Reason Stop Dose Admin Acetaminophen 650 mg 01/25/21 14:04 01/25/21 14:44 Acetaminophen 325 Mg Tablet PO 650 mg Q4H PRN Administration Headache Hydrocodone Bitart/Acetaminophen 1 tab 01/25/21 17:16 Hydrocodone/Acetaminophen (*Crx) 5-325 Mg Tablet PO Q6H PRN Pain Rated 6 or Greater Allopurinol 300 mg 01/25/21 08:00 01/26/21 08:24 Allopurinol 300 Mg Tablet PO 300 mg DAILY@0800 FLORIN Administration Ascorbic Acid 1,000 mg 01/25/21 09:00 01/26/21 08:24 Ascorbic Acid 500 Mg Tablet PO 1,000 mg DAILY FLORIN Administration Aspirin 81 mg 01/25/21 09:00 01/26/21 08:24 Aspirin 81 Mg Enteric Tablet PO 81 mg DAILY FLORIN Administration Atorvastatin Calcium 40 mg 01/25/21 09:00 01/26/21 08:24 Atorvastatin 40 Mg Tablet PO 40 mg DAILY FLORIN Administration Cyclobenzaprine HCl 10 mg 01/25/21 17:15 01/25/21 17:43 Cyclobenzaprine Hcl 10 Mg Tablet PO 10 mg Q8H PRN Administration Muscle Spasm Lisinopril 20 mg 01/25/21 09:00 01/26/21 08:24 Lisinopril 20 Mg Tablet PO 20 mg DAILY FLORIN Administration Ticagrelor 90 mg 01/24/21 22:10 01/26/21 08:24 Ticagrelor 90 Mg Tablet PO 90 mg Q12HR FLORIN Administration Progress Note: A&P Assessment and Plan (1) Right hemiplegia: Code(s): G81.91 - Hemiplegia, unspecified affecting right dominant side Status: Acute (2) Acute cerebrovascular accident: Code(s): I63.9 - Cerebral infarction, unspecified Status: Acute (3) Hypertrophic obstructive cardiomyopathy: Code(s): I42.1 - Obstructive hypertrophic cardiomyopathy Status: Acute (4) Adiposity: Code(s): E66.9 - Obesity, unspecified Statu
[2021-01-26 14:00] VITALS: BP 108/61; PULSE 83; RESP 18; TEMP 36.2; O2SAT 98
--- NOTE | 2021-01-26 15:45 | RPD ---
INDIVIDUALIZED PLAN OF CARE FOR Isela Shah Brief Synthesis of Pre-Admission Screen, Post-Admission Evaluation and Therapy Evaluations: The patient presents to rehab with a left occipital and parietal lobe infarct. Comorbidities include:Hypertension, obesity, right upper extremity weakness, occlusion of left carotid bulb status post stent placement, gout, hyperlipidemia. The patient requires physician services for medical oversight, management of any medical complications in addition to comorbidities, and coordination of care. Emotional needs will be monitored as depression is a common sequelae of stroke. The patient needs physician monitoring and treatment of anemia, post-procedure hypotension, hypertension, hypokalemia, hypocalcemia, leukocytosis, gout, monitoring for adverse reactions to new medications, monitoring of infection, and pain control. The patient requires nursing services for frequent neuro checks, anticoagulation therapy, medication management and education, pressure relief and skin care management, monitoring of labs, groin puncture wound care, and fall/safety precautions. Deficits include:ADLs, Balance, Endurance, Family Training/Education, Mobility, Pain Management, ROM, Safety, Strength, Transfers Anchor Tacker/Case Management for: Discharge Planning and Patient/Family Counseling Physical Therapy: 5 days per week for 75 minutes for the anticipated length of stay. Treatments may include: Therapeutic Exercise, Gait Training, Neuromuscular Re-education, Transfer Training, Community Reintegration, Bed Mobility, Patient/Family Education, Wheelchair Mobility Group Therapy/Concurrent Therapy Rationales: -Improve attention span during functional activities in a distracted environment. -Enhance problem solving and/or adequate judgment skills during functional activities in a distracted environment. -Promote increased safety awareness in a distracted environment to reduce fall risk with functional tasks, transfers, and ambulation to allow a more safe, self-sufficient return to the home environment. -Improve dynamic balance skills to promote safety and independence with functional activities in a distracted environment for maximum gain. Occupational Therapy: 5 days per week for 75 minutes for the anticipated length of stay. Treatments may include: Therapeutic Exercise, Therapeutic Activity, Cognitive Training, Self-Care Transfer Training, Community Reintegration, Home Management, Patient/Family Education, Wheelchair Mobility Training, Energy Conservation Training Group Therapy/Concurrent Therapy Rationales: -Allow therapist to observe and teach generalization and carry-over of skills learned in individual therapy. -Enhance problem solving and sequencing skills during therapeutic activities in a distracted environment. -Promote increased safety awareness in a realistic setting to reduce fall risk with functional tasks due to visual and verbal distractions. -Increase functional level with ADLs, ADL transfers and use of adaptive equipment through therapeutic activities with others while promoting safety to allow a more safe, self-sufficient return home. Speech Therapy: 5 days per week for 30 minutes for the anticipated length of stay. Treatments may include: Dysphasia Therapy, Speech/Language/Communication Therapy, Cognitive Training, Patient/Family Education Group Therapy/Concurrent Therapy - Rationale: -Allow therapist to observe and teach generalization and carry-over of skills learned in individual therapy. -Improve comprehension skills with complex or abstract ideas through discussion in a realistic setting. -Enhance problem solving skills with complex issues during activities in a distracted environment. -Promote increased memory skills and concentration in a distracted environment for a safe transition home. -Improve attention and focus with language/communication skills in a realistic and supportive therapeutic setting. -Allow for practice of exp
[2021-01-26 20:24] VITALS: BP 121/52; PULSE 82; RESP 20; TEMP 36.1; O2SAT 98
[2021-01-27 05:22] VITALS: BP 123/47; PULSE 82; RESP 18; TEMP 36.4; O2SAT 99
[2021-01-27 08:00] VITALS: PULSE 82; RESP 18; O2SAT 99
[2021-01-27] MEDS: ATORVASTATIN 40 MG TABLET PO (08:55)
[2021-01-27] MEDS: ASPIRIN 81 MG ENTERIC TABLET PO (08:55)
[2021-01-27] MEDS: TICAGRELOR 90 MG TABLET PO ×2 (08:56→20:33)
[2021-01-27] MEDS: ASCORBIC ACID 500 MG TABLET 1000 MG PO (08:56)
[2021-01-27] MEDS: allopurinoL 300 MG TABLET PO (08:56)
[2021-01-27] MEDS: lisinopriL 20 MG TABLET PO (08:56)
[2021-01-27 10:32] VITALS: PULSE 94; O2SAT 99
--- NOTE | 2021-01-27 12:03 | WPDNEURORHBP ---
Subjective Date/time seen: 01/27/21 12:03 Interval history: this is a 75-year-old female with past medical history of adiposity, hypertension, hyperlipidemia, hypertrophic cardiomyopathy, and gout who presented to [facility] on 01/15/2021 with right-sided weakness. 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 Patient was transferred to [facility] on 01/17/2021 for further workup patient underwent angioplasty and stenting on 01/21/2021. Patient will remain on aspirin and Brilinta. Patient denies left hip pain. Review of Systems Review of Systems: All systems reviewed & are unremarkable except as noted in HPI and below Functional Status Ambulation Ability Ability to Ambulate 10 Feet: Contact Guard Ability to Ambulate 50 Feet With 2 Turns: Contact Guard Ambulation Assistive Devices: None Exam Narrative: Exam Narrative: Head is normocephalic.External ocular muscles are intact. Face is symmetrical. Speech is fluent. Cognition is improving Patient has delay with categorization. Sequencing is intact. Heart rate and rhythm is regular. Lungs are clear to auscultation. Abdomen is soft nontender. Musculoskeletal exam: Left upper and lower extremity strength are 4/5 right lower extremity strength is 4- out of 5 right upper extremity tone is flaccid. Strength is 1-2at shoulder, and distally it is trace. Motor recovery noted transfers at supervision. Gait is 70 ft with CGA. Balance is fair plus to good minus. Objective Data Vital Signs Vital Signs: Vital Signs - 24 hr 01/26/21 14:00 01/26/21 20:24 01/27/21 05:22 Temperature 36.2 C L 36.1 C L 36.4 C L Pulse Rate 83 82 82 Respiratory Rate 18 20 18 Blood Pressure 108/61 121/52 L 123/47 L Pulse Oximetry 98 98 99 01/27/21 08:00 01/27/21 10:32 Temperature Pulse Rate 82 94 Respiratory Rate 18 Blood Pressure Pulse Oximetry 99 99 Intake/Output Intake/Output: Intake & Output 01/24/21 01/25/21 01/26/21 01/27/21 23:59 23:59 23:59 23:59 Intake Total 960 720 480 Balance 960 720 480 Meds/Results Medications: Active Medications Generic Name Dose Route Start Last Admin Trade Name Freq PRN Reason Stop Dose Admin Acetaminophen 650 mg 01/25/21 14:04 01/25/21 14:44 Acetaminophen 325 Mg Tablet PO 650 mg Q4H PRN Administration Headache Hydrocodone Bitart/Acetaminophen 1 tab 01/25/21 17:16 Hydrocodone/Acetaminophen (*Crx) 5-325 Mg Tablet PO Q6H PRN Pain Rated 6 or Greater Allopurinol 300 mg 01/25/21 08:00 01/27/21 08:56 Allopurinol 300 Mg Tablet PO 300 mg DAILY@0800 FLORIN Administration Ascorbic Acid 1,000 mg 01/25/21 09:00 01/27/21 08:56 Ascorbic Acid 500 Mg Tablet PO 1,000 mg DAILY FLORIN Administration Aspirin 81 mg 01/25/21 09:00 01/27/21 08:55 Aspirin 81 Mg Enteric Tablet PO 81 mg DAILY FLORIN Administration Atorvastatin Calcium 40 mg 01/25/21 09:00 01/27/21 08:55 Atorvastatin 40 Mg Tablet PO 40 mg DAILY FLORIN Administration Cyclobenzaprine HCl 10 mg 01/25/21 17:15 01/25/21 17:43 Cyclobenzaprine Hcl 10 Mg Tablet PO 10 mg Q8H PRN Administration Muscle Spasm Lisinopril 20 mg 01/25/21 09:00 01/27/21 08:56 Lisinopril 20 Mg Tablet PO 20 mg DAILY FLORIN Administration Ticagrelor 90 mg 01/24/21 22:10 01/27/21 08:56 Ticagrelor 90 Mg Tablet PO 90 mg Q12HR FLORIN Administration Progress Note: A&P Assessment and Plan (1) Right hemiplegia: Code(s): G81.91 - Hemiplegia, unspecified affecting right dominant side Status: Acute (2) Acute cerebrovascular accident: Code(s): I63.9 - Cerebral infarction, unspecified Status: Acute (3) Hypertrophic obstructive cardiomyopathy: Code(s): I42.1 - Obstructive hypertrophic cardiomyopathy Status: Acute (4) Adiposity: Code(s): E66.9 - Obesity, unspecified Status: Acute (5) Hypertension: Qualifiers: Hy
[2021-01-27 14:00] VITALS: BP 128/56; PULSE 90; RESP 18; TEMP 36.3; O2SAT 98
[2021-01-27] MEDS: CYCLOBENZAPRINE HCL 10 MG TABLET PO (18:13)
[2021-01-27 22:00] VITALS: BP 132/62; PULSE 94; RESP 16; TEMP 36.1; O2SAT 97
[2021-01-27] MEDS: HYDROcodone/acetaminophen (*CRX) 5-325 MG TABLET 1 TAB PO (22:37)
[2021-01-28 04:57] VITALS: BP 104/40; PULSE 75; RESP 14; TEMP 35.9; O2SAT 98
[2021-01-28 08:00] VITALS: PULSE 75; RESP 14; O2SAT 98
[2021-01-28] MEDS: ASPIRIN 81 MG ENTERIC TABLET PO (08:18)
[2021-01-28] MEDS: ATORVASTATIN 40 MG TABLET PO (08:18)
[2021-01-28] MEDS: ASCORBIC ACID 500 MG TABLET 1000 MG PO (08:18)
[2021-01-28] MEDS: allopurinoL 300 MG TABLET PO (08:18)
[2021-01-28] MEDS: TICAGRELOR 90 MG TABLET PO ×2 (08:19→20:37)
[2021-01-28] MEDS: lisinopriL 20 MG TABLET PO (08:19)
[2021-01-28] MEDS: CYCLOBENZAPRINE HCL 10 MG TABLET PO (08:20)
--- NOTE | 2021-01-28 10:04 | WPDNEURORHBP ---
Subjective Date/time seen: 01/28/21 10:04 Interval history: This is a 75-year-old female with past medical history of adiposity, hypertension, hyperlipidemia, hypertrophic cardiomyopathy, and gout who presented to [facility] on 01/15/2021 with right-sided weakness. 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 Patient was transferred to [place] on 01/17/2021 for further workup patient underwent angioplasty and stenting on 01/21/2021. Patient will remain on aspirin and Brilinta. Patient admits to left hip pain again. Encouraged patient to take Flexeril at prn. Patient voices no other complaint Review of Systems Review of Systems: All systems reviewed & are unremarkable except as noted in HPI and below Functional Status Ambulation Ability Ability to Ambulate 10 Feet: Standby Assistance Ability to Ambulate 50 Feet With 2 Turns: Standby Assistance Ambulation Assistive Devices: None Exam Narrative: Exam Narrative: Head is normocephalic.External ocular muscles are intact. Face is symmetrical. Speech is fluent. Cognition is improving. Mood is bright. Patient has delay with categorization and sequencing is intact. Heart rate and rhythm is regular. Lungs are clear to auscultation. Abdomen is soft nontender. Musculoskeletal exam: Left upper and lower extremity strength are 4/5 right lower extremity strength is 4- out of 5 right upper extremity tone is flaccid. Strength is 1-2at shoulder, and distally it is trace. Motor recovery noted in a flexor synergy pattern. Transfers at supervision. Gait is 70 ft with CGA. Balance is fair plus to good minus. Continue with RUE modalities and strengthening. Objective Data Vital Signs Vital Signs: Vital Signs - 24 hr 01/27/21 10:32 01/27/21 14:00 01/27/21 22:00 Temperature 36.3 C L 36.1 C L Pulse Rate 94 90 94 Respiratory Rate 18 16 Blood Pressure 128/56 L 132/62 Pulse Oximetry 99 98 97 01/28/21 04:57 Temperature 35.9 C L Pulse Rate 75 Respiratory Rate 14 Blood Pressure 104/40 L Pulse Oximetry 98 Intake/Output Intake/Output: Intake & Output 01/25/21 01/26/21 01/27/21 01/28/21 23:59 23:59 23:59 23:59 Intake Total 960 720 960 240 Balance 960 720 960 240 Meds/Results Medications: Active Medications Generic Name Dose Route Start Last Admin Trade Name Ford PRN Reason Stop Dose Admin Acetaminophen 650 mg 01/25/21 14:04 01/25/21 14:44 Acetaminophen 325 Mg Tablet PO 650 mg Q4H PRN Administration Headache Hydrocodone Bitart/Acetaminophen 1 tab 01/25/21 17:16 01/27/21 22:37 Hydrocodone/Acetaminophen (*Crx) 5-325 Mg Tablet PO 1 tab Q6H PRN Administration Pain Rated 6 or Greater Allopurinol 300 mg 01/25/21 08:00 01/28/21 08:18 Allopurinol 300 Mg Tablet PO 300 mg DAILY@0800 FLORIN Administration Ascorbic Acid 1,000 mg 01/25/21 09:00 01/28/21 08:18 Ascorbic Acid 500 Mg Tablet PO 1,000 mg DAILY FLORIN Administration Aspirin 81 mg 01/25/21 09:00 01/28/21 08:18 Aspirin 81 Mg Enteric Tablet PO 81 mg DAILY FLORIN Administration Atorvastatin Calcium 40 mg 01/25/21 09:00 01/28/21 08:18 Atorvastatin 40 Mg Tablet PO 40 mg DAILY FLORIN Administration Cyclobenzaprine HCl 10 mg 01/25/21 17:15 01/28/21 08:20 Cyclobenzaprine Hcl 10 Mg Tablet PO 10 mg Q8H PRN Administration Muscle Spasm Lisinopril 20 mg 01/25/21 09:00 01/28/21 08:19 Lisinopril 20 Mg Tablet PO 20 mg DAILY FLORIN Administration Ticagrelor 90 mg 01/24/21 22:10 01/28/21 08:19 Ticagrelor 90 Mg Tablet PO 90 mg Q12HR FLORIN Administration Progress Note: A&P Assessment and Plan (1) Right hemiplegia: Code(s): G81.91 - Hemiplegia, unspecified affecting right dominant side Status: Acute (2) Acute cerebrovascular accident: Code(s): I63.9 - Cerebral infarction, unspecified Status: Acute Assessment and Plan: ASA. Debora Riojas
[2021-01-28 14:00] VITALS: BP 107/48; PULSE 85; RESP 18; TEMP 36.4; O2SAT 97
[2021-01-28 22:00] VITALS: BP 125/66; PULSE 85; RESP 20; TEMP 36.6; O2SAT 100
[2021-01-29 06:00] VITALS: BP 130/56; PULSE 88; RESP 18; TEMP 36.6; O2SAT 100
[2021-01-29] MEDS: ASCORBIC ACID 500 MG TABLET 1000 MG PO (08:25)
[2021-01-29] MEDS: TICAGRELOR 90 MG TABLET PO ×2 (08:25→20:27)
[2021-01-29] MEDS: ATORVASTATIN 40 MG TABLET PO (08:25)
[2021-01-29] MEDS: ASPIRIN 81 MG ENTERIC TABLET PO (08:25)
[2021-01-29] MEDS: allopurinoL 300 MG TABLET PO (08:25)
[2021-01-29] MEDS: lisinopriL 20 MG TABLET PO (08:25)
--- NOTE | 2021-01-29 08:29 | WPDNEURORHBP ---
Subjective Date/time seen: 01/29/21 08:29 Interval history: This is a 75-year-old female with past medical history of adiposity, hypertension, hyperlipidemia, hypertrophic cardiomyopathy, and gout who presented to [facility] on 01/15/2021 with right-sided weakness. 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 Patient was transferred to [place] on 01/17/2021 for further workup patient underwent angioplasty and stenting on 01/21/2021. Patient will remain on aspirin and Brilinta. Patient denies left hip pain today. Patient is taking Flexeril at night. Patient voices no other complaint Review of Systems Review of Systems: All systems reviewed & are unremarkable except as noted in HPI and below Functional Status Ambulation Ability Ability to Ambulate 10 Feet: Minimum Assistance X 1 Ability to Ambulate 50 Feet With 2 Turns: Minimum Assistance X 1 Ambulation Assistive Devices: None Exam Narrative: Exam Narrative: Head is normocephalic.External ocular muscles are intact. Face is symmetrical. Speech is fluent. Cognition is improving. Mood is bright. Patient has delay with categorization and sequencing is intact. Heart rate and rhythm is regular. Lungs are clear to auscultation. Abdomen is soft nontender. Musculoskeletal exam: Left upper and lower extremity strength are 4/5 right lower extremity strength is 4- out of 5 right upper extremity tone is flaccid. Strength is 1-2at shoulder, and distally it is trace. Motor recovery noted in a flexor synergy pattern. Transfers at supervision. Gait is 70 ft with CGA. Balance is fair plus to good minus. Continue with RUE modalities and strengthening. Objective Data Vital Signs Vital Signs: Vital Signs - 24 hr 01/28/21 14:00 01/28/21 22:00 01/29/21 06:00 Temperature 36.4 C 36.6 C 36.6 C Pulse Rate 85 85 88 Respiratory Rate 18 20 18 Blood Pressure 107/48 L 125/66 130/56 L Pulse Oximetry 97 100 100 Intake/Output Intake/Output: Intake & Output 01/26/21 01/27/21 01/28/21 01/29/21 23:59 23:59 23:59 23:59 Intake Total 720 960 720 Balance 720 960 720 Meds/Results Medications: Active Medications Generic Name Dose Route Start Last Admin Trade Name Freq PRN Reason Stop Dose Admin Acetaminophen 650 mg 01/25/21 14:04 01/25/21 14:44 Acetaminophen 325 Mg Tablet PO 650 mg Q4H PRN Administration Headache Hydrocodone Bitart/Acetaminophen 1 tab 01/25/21 17:16 01/27/21 22:37 Hydrocodone/Acetaminophen (*Crx) 5-325 Mg Tablet PO 1 tab Q6H PRN Administration Pain Rated 6 or Greater Allopurinol 300 mg 01/25/21 08:00 01/29/21 08:25 Allopurinol 300 Mg Tablet PO 300 mg DAILY@0800 FLORIN Administration Ascorbic Acid 1,000 mg 01/25/21 09:00 01/29/21 08:25 Ascorbic Acid 500 Mg Tablet PO 1,000 mg DAILY FLORIN Administration Aspirin 81 mg 01/25/21 09:00 01/29/21 08:25 Aspirin 81 Mg Enteric Tablet PO 81 mg DAILY FLORIN Administration Atorvastatin Calcium 40 mg 01/25/21 09:00 01/29/21 08:25 Atorvastatin 40 Mg Tablet PO 40 mg DAILY FLORIN Administration Cyclobenzaprine HCl 10 mg 01/25/21 17:15 01/28/21 08:20 Cyclobenzaprine Hcl 10 Mg Tablet PO 10 mg Q8H PRN Administration Muscle Spasm Lisinopril 20 mg 01/25/21 09:00 01/29/21 08:25 Lisinopril 20 Mg Tablet PO 20 mg DAILY FLORIN Administration Sodium Chloride 1 spray 01/28/21 17:25 Saline 0.65% Steven Soln 44 Ml Btl NASAL Q6HR PRN Congestion Ticagrelor 90 mg 01/24/21 22:10 01/29/21 08:25 Ticagrelor 90 Mg Tablet PO 90 mg Q12HR FLORIN Administration Progress Note: A&P Assessment and Plan (1) Right hemiplegia: Code(s): G81.91 - Hemiplegia, unspecified affecting right dominant side Status: Acute (2) Acute cerebrovascular accident: Code(s): I63.9 - Cerebral infarction, unspecified Status: Acute Assessment and Plan: ASA. Lipitor, Brilinta (3) H
[2021-01-29] MEDS: ACETAMINOPHEN 325 MG TABLET 650 MG PO (09:25)
[2021-01-29] MEDS: CYCLOBENZAPRINE HCL 10 MG TABLET PO (13:50)
[2021-01-29 14:00] VITALS: BP 136/54; PULSE 80; RESP 18; TEMP 36.3; O2SAT 98
[2021-01-29 22:00] VITALS: BP 118/49; PULSE 84; RESP 18; TEMP 36; O2SAT 98
[2021-01-30 06:00] VITALS: BP 112/49; PULSE 84; RESP 16; TEMP 36.2; O2SAT 97
[2021-01-30 08:00] VITALS: PULSE 84; RESP 16; O2SAT 97
[2021-01-30] MEDS: allopurinoL 300 MG TABLET PO (08:29)
[2021-01-30] MEDS: TICAGRELOR 90 MG TABLET PO ×2 (08:29→20:28)
[2021-01-30] MEDS: ATORVASTATIN 40 MG TABLET PO (08:29)
[2021-01-30] MEDS: lisinopriL 20 MG TABLET PO (08:29)
[2021-01-30] MEDS: ASPIRIN 81 MG ENTERIC TABLET PO (08:29)
[2021-01-30] MEDS: ASCORBIC ACID 500 MG TABLET 1000 MG PO (08:29)
[2021-01-30] MEDS: SALINE 0.65% NAS SOLN 44 ML BTL 1 SPRAY NASAL (08:31)
--- NOTE | 2021-01-30 11:03 | WPDNEURORHBP ---
Subjective Date/time seen: 01/30/21 11:03 Interval history: This is a 75-year-old female with past medical history of adiposity, hypertension, hyperlipidemia, hypertrophic cardiomyopathy, and gout who presented to [facility] on 01/15/2021 with right-sided weakness. 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 Patient was transferred to [place] on 01/17/2021 for further workup patient underwent angioplasty and stenting on 01/21/2021. Patient will remain on aspirin and Brilinta. Patient seen in during ADLS. Mood is bright. Patient denies hip pain this morning. Patient is taking Flexeril at night. Patient voices no other complaint Review of Systems Review of Systems: All systems reviewed & are unremarkable except as noted in HPI and below Functional Status Ambulation Ability Ability to Ambulate 10 Feet: Standby Assistance Ability to Ambulate 50 Feet With 2 Turns: Standby Assistance Ability to Ambulate 150 Feet: Contact Guard Ambulation Assistive Devices: Cane, Small Base Quad Exam Narrative: Exam Narrative: Head is normocephalic.External ocular muscles are intact. Face is symmetrical. Speech is fluent. Cognition is improving. Mood is bright. Patient has delay with categorization and sequencing is intact. Heart rate and rhythm is regular. Lungs are clear to auscultation. Abdomen is soft nontender. Musculoskeletal exam: Left upper and lower extremity strength are 4/5 right lower extremity strength is 4- out of 5 right upper extremity tone is flaccid. Strength is 1-2at shoulder, and distally it is trace. Motor recovery noted in a flexor synergy pattern. Transfers at supervision. Gait is 70 ft with CGA with quadcane. Balance is fair plus to good minus. Continue with RUE modalities and strengthening. Objective Data Vital Signs Vital Signs: Vital Signs - 24 hr 01/29/21 14:00 01/29/21 22:00 01/30/21 06:00 Temperature 36.3 C L 36.0 C L 36.2 C L Pulse Rate 80 84 84 Respiratory Rate 18 18 16 Blood Pressure 136/54 L 118/49 L 112/49 L Pulse Oximetry 98 98 97 01/30/21 08:00 Temperature Pulse Rate 84 Respiratory Rate 16 Blood Pressure Pulse Oximetry 97 Intake/Output Intake/Output: Intake & Output 01/27/21 01/28/21 01/29/21 01/30/21 23:59 23:59 23:59 23:59 Intake Total 960 720 840 Balance 960 720 840 Meds/Results Medications: Active Medications Generic Name Dose Route Start Last Admin Trade Name Ford PRN Reason Stop Dose Admin Acetaminophen 650 mg 01/25/21 14:04 01/29/21 09:25 Acetaminophen 325 Mg Tablet PO 650 mg Q4H PRN Administration Headache Hydrocodone Bitart/Acetaminophen 1 tab 01/25/21 17:16 01/27/21 22:37 Hydrocodone/Acetaminophen (*Crx) 5-325 Mg Tablet PO 1 tab Q6H PRN Administration Pain Rated 6 or Greater Allopurinol 300 mg 01/25/21 08:00 01/30/21 08:29 Allopurinol 300 Mg Tablet PO 300 mg DAILY@0800 FLORIN Administration Ascorbic Acid 1,000 mg 01/25/21 09:00 01/30/21 08:29 Ascorbic Acid 500 Mg Tablet PO 1,000 mg DAILY FLORIN Administration Aspirin 81 mg 01/25/21 09:00 01/30/21 08:29 Aspirin 81 Mg Enteric Tablet PO 81 mg DAILY FLORIN Administration Atorvastatin Calcium 40 mg 01/25/21 09:00 01/30/21 08:29 Atorvastatin 40 Mg Tablet PO 40 mg DAILY FLORIN Administration Cyclobenzaprine HCl 10 mg 01/25/21 17:15 01/29/21 13:50 Cyclobenzaprine Hcl 10 Mg Tablet PO 10 mg Q8H PRN Administration Muscle Spasm Lisinopril 20 mg 01/25/21 09:00 01/30/21 08:29 Lisinopril 20 Mg Tablet PO 20 mg DAILY FLORIN Administration Sodium Chloride 1 spray 01/28/21 17:25 01/30/21 08:31 Saline 0.65% Steven Soln 44 Ml Btl NASAL 1 spray Q6HR PRN Administration Congestion Ticagrelor 90 mg 01/24/21 22:10 01/30/21 08:29 Ticagrelor 90 Mg Tablet PO 90 mg Q12HR FLORIN Administration Progress Note: A&P Assessment and Plan (1) Right hemiplegia: C
[2021-01-30 14:00] VITALS: BP 109/58; PULSE 86; RESP 20; TEMP 36.6; O2SAT 98
[2021-01-30 20:23] VITALS: BP 109/55; PULSE 79; RESP 16; TEMP 36.8; O2SAT 97
--- NOTE | 2021-01-30 20:38 | PC.NURSE ---
2027 Only half of a tab of Brilinta 45 mg was given.
[2021-01-31] MEDS: ACETAMINOPHEN 325 MG TABLET 650 MG PO (01:43)
[2021-01-31 06:00] VITALS: BP 122/49; PULSE 80; RESP 18; TEMP 36.2; O2SAT 100
[2021-01-31 08:00] VITALS: PULSE 80; RESP 18; O2SAT 100
[2021-01-31] MEDS: ASPIRIN 81 MG ENTERIC TABLET PO (08:20)
[2021-01-31] MEDS: lisinopriL 20 MG TABLET PO (08:20)
[2021-01-31] MEDS: ASCORBIC ACID 500 MG TABLET 1000 MG PO (08:20)
[2021-01-31] MEDS: allopurinoL 300 MG TABLET PO (08:20)
[2021-01-31] MEDS: ATORVASTATIN 40 MG TABLET PO (08:20)
--- NOTE | 2021-01-31 13:10 | WPDNEURORHBP ---
Subjective Date/time seen: 01/31/21 13:10 Interval history: This is a 75-year-old female with past medical history of adiposity, hypertension, hyperlipidemia, hypertrophic cardiomyopathy, and gout who presented to [facility] on 01/15/2021 with right-sided weakness. 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 Patient was transferred to [facility] on 01/17/2021 for further workup patient underwent angioplasty and stenting on 01/21/2021. Patient will remain on aspirin and Brilinta. Patient voices no other complaint. Patient present during family conference. Review of Systems Review of Systems: All systems reviewed & are unremarkable except as noted in HPI and below Functional Status Ambulation Ability Ability to Ambulate 10 Feet: Independent Ability to Ambulate 50 Feet With 2 Turns: Independent Ability to Ambulate 150 Feet: Standby Assistance Ambulation Assistive Devices: None Transfers Ability Ability to Transfer In/Out of Chair: Independent Exam Narrative: Exam Narrative: Head is normocephalic.External ocular muscles are intact. Face is symmetrical. Speech is fluent. Cognition is improving. Mood is bright. Patient has delay with categorization and sequencing is intact. Heart rate and rhythm is regular. Lungs are clear to auscultation. Abdomen is soft nontender. Musculoskeletal exam: Left upper and lower extremity strength are 4/5 right lower extremity strength is 4- out of 5 right upper extremity tone is flaccid. Strength is 1-2at shoulder, and distally it is trace. Motor recovery noted in a flexor synergy pattern. Patient is independent with bed mobility and transfers. Patient requires standby assistance to contact guard without a device 150 ft. Stairs are standby assistance. Patient requires moderate assistance for upper extremity ADLs and minimal assistance for lower extremity ADLs. Bathing is at min assist. Toileting ranges from Min to moderate assistance. Cognition continues to improve. Objective Data Vital Signs Vital Signs: Vital Signs - 24 hr 01/30/21 14:00 01/30/21 20:23 01/31/21 06:00 Temperature 36.6 C 36.8 C 36.2 C L Pulse Rate 86 79 80 Respiratory Rate 20 16 18 Blood Pressure 109/58 L 109/55 L 122/49 L Pulse Oximetry 98 97 100 01/31/21 08:00 Temperature Pulse Rate 80 Respiratory Rate 18 Blood Pressure Pulse Oximetry 100 Intake/Output Intake/Output: Intake & Output 01/28/21 01/29/21 01/30/21 01/31/21 23:59 23:59 23:59 23:59 Intake Total 720 840 720 240 Balance 720 840 720 240 Meds/Results Medications: Active Medications Generic Name Dose Route Start Last Admin Trade Name Freq PRN Reason Stop Dose Admin Acetaminophen 650 mg 01/25/21 14:04 01/31/21 01:43 Acetaminophen 325 Mg Tablet PO 650 mg Q4H PRN Administration Headache Hydrocodone Bitart/Acetaminophen 1 tab 01/25/21 17:16 01/27/21 22:37 Hydrocodone/Acetaminophen (*Crx) 5-325 Mg Tablet PO 1 tab Q6H PRN Administration Pain Rated 6 or Greater Allopurinol 300 mg 01/25/21 08:00 01/31/21 08:20 Allopurinol 300 Mg Tablet PO 300 mg DAILY@0800 FLORIN Administration Ascorbic Acid 1,000 mg 01/25/21 09:00 01/31/21 08:20 Ascorbic Acid 500 Mg Tablet PO 1,000 mg DAILY FLORIN Administration Aspirin 81 mg 01/25/21 09:00 01/31/21 08:20 Aspirin 81 Mg Enteric Tablet PO 81 mg DAILY FLORIN Administration Atorvastatin Calcium 40 mg 01/25/21 09:00 01/31/21 08:20 Atorvastatin 40 Mg Tablet PO 40 mg DAILY FLORIN Administration Cyclobenzaprine HCl 10 mg 01/25/21 17:15 01/29/21 13:50 Cyclobenzaprine Hcl 10 Mg Tablet PO 10 mg Q8H PRN Administration Muscle Spasm Lisinopril 20 mg 01/25/21 09:00 01/31/21 08:20 Lisinopril 20 Mg Tablet PO 20 mg DAILY FLORIN Administration Nonform Ticagrelor 1 each 01/31/21 09:00 01/31/21 08:21 45 Mg Tablet PO 1 each Q12HR FLORIN Administration Sodium Chloride 1 spr
[2021-01-31 14:00] VITALS: BP 125/56; PULSE 88; RESP 16; TEMP 36; O2SAT 98
[2021-01-31 20:30] VITALS: PULSE 87; RESP 18; O2SAT 98
[2021-01-31 22:00] VITALS: BP 110/50; PULSE 87; RESP 18; TEMP 36.2; O2SAT 98
[2021-02-01 05:15] LABS: Basophils Absolute Auto 0.1 K/mm3 (0.0-0.1); Basophils Percent Auto 1.2 % (0.2-1.2); Eosinophils Absolute Auto 0.4 K/mm3 (0-0.3); Eosinophils Percent Auto 4.3 % (0-4.4); Hematocrit 32.9 % (37.0-47.0); Hemoglobin 10.6 g/dL (12.0-15.0); Immature Granulocyte Absolute 0.09 K/mm3 (0.00-0.031); Lymphocytes Absolute Auto 2.34 K/mm3 (0.9-3.2); Lymphocytes Percent Auto 24.8 % (18.3-44.2); Mean Corpuscular HGB Conc 32.2 g/dl (32-36); Mean Corpuscular Hemoglobin 30.2 pg (26-34); Mean Corpuscular Volume 93.7 fl (80-100); Mean Platelet Volume 10.8 fl (7.4-10.4); Monocytes Absolute Auto 0.7 K/mm3 (0.1-0.6); Monocytes Percent Auto 7.4 % (2.6-8.5); Neutrophils Absolute Auto 5.8 K/mm3 (1.3-6.7); Neutrophils Percent Auto 61.3 % (45.5-73.1); Platelet Count Result 357 k/mm3 (150-375); Red Blood Count 3.51 M/mm3 (4.2-5.4); Red Cell Distribution Width 15.3 % (11.5-14.5); White Blood Count 9.4 K/mm3 (4.5-10.0)
[2021-02-01 05:33] LABS: Anion Gap 3 mmol/L (8-16); Blood Urea Nitrogen 17 mg/dL (7-17); Calcium 8.3 mg/dL (8.4-10.2); Carbon Dioxide 29 mmol/L (22-30); Chloride 108 mmol/L (98-107); Estimated Glomerular Filt Rate > 60; Glucose 96 mg/dL (65-105); Potassium 4.3 mmol/L (3.4-5.0); Sodium 140 mmol/L (137-145)
[2021-02-01 06:00] VITALS: BP 116/55; PULSE 81; RESP 16; TEMP 35.8; O2SAT 99
[2021-02-01] MEDS: ASCORBIC ACID 500 MG TABLET 1000 MG PO (08:08)
[2021-02-01] MEDS: ASPIRIN 81 MG ENTERIC TABLET PO (08:08)
[2021-02-01] MEDS: ATORVASTATIN 40 MG TABLET PO (08:09)
[2021-02-01] MEDS: lisinopriL 20 MG TABLET PO (08:09)
[2021-02-01] MEDS: allopurinoL 300 MG TABLET PO (08:09)
--- NOTE | 2021-02-01 09:13 | WPDNEURORHBP ---
Subjective Date/time seen: 02/01/21 09:13 Interval history: This is a 75-year-old female with past medical history of adiposity, hypertension, hyperlipidemia, hypertrophic cardiomyopathy, and gout who presented to [facility] on 01/15/2021 with right-sided weakness. 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 Patient was transferred to [place] on 01/17/2021 for further workup patient underwent angioplasty and stenting on 01/21/2021. Patient will remain on aspirin and Brilinta. Patient voices no other complaint. Patient demonstrates difficulty with medicine mgmt. Review of Systems Review of Systems: All systems reviewed & are unremarkable except as noted in HPI and below Functional Status Ambulation Ability Ability to Ambulate 10 Feet: Independent Ability to Ambulate 50 Feet With 2 Turns: Independent Ability to Ambulate 150 Feet: Standby Assistance Ambulation Assistive Devices: None Transfers Ability Ability to Transfer In/Out of Chair: Independent Exam Narrative: Exam Narrative: Head is normocephalic.External ocular muscles are intact. Face is symmetrical. Speech is fluent. Cognition is improving. Mood is bright. Patient has delay with categorization and sequencing is intact. Heart rate and rhythm is regular. Lungs are clear to auscultation. Abdomen is soft nontender. Musculoskeletal exam: Left upper and lower extremity strength are 4/5 right lower extremity strength is 4- out of 5 right upper extremity tone is flaccid. Strength is 1-2at shoulder, and distally it is trace. Motor recovery noted in a flexor synergy pattern. Patient is independent with bed mobility and transfers. Patient requires standby assistance to contact guard without a device 150 ft. Stairs are standby assistance. Patient requires moderate assistance for upper extremity ADLs and minimal assistance for lower extremity ADLs. Bathing is at min assist. Toileting ranges from Min to moderate assistance. Cognition continues to improve. Medicine management demonstrates impairment form discerning once a day to one a day . Dtr was present during ST session and was made aware that she will need to oversee medicine mgmt. Objective Data Vital Signs Vital Signs: Vital Signs - 24 hr 01/31/21 14:00 01/31/21 20:30 01/31/21 22:00 Temperature 36.0 C L 36.2 C L Pulse Rate 88 87 87 Respiratory Rate 16 18 18 Blood Pressure 125/56 L 110/50 L Pulse Oximetry 98 98 98 02/01/21 06:00 Temperature 35.8 C L Pulse Rate 81 Respiratory Rate 16 Blood Pressure 116/55 L Pulse Oximetry 99 Intake/Output Intake/Output: Intake & Output 01/29/21 01/30/21 01/31/21 02/01/21 23:59 23:59 23:59 23:59 Intake Total 840 720 720 360 Balance 840 720 720 360 Meds/Results Medications: Active Medications Generic Name Dose Route Start Last Admin Trade Name Ford PRN Reason Stop Dose Admin Acetaminophen 650 mg 01/25/21 14:04 01/31/21 01:43 Acetaminophen 325 Mg Tablet PO 650 mg Q4H PRN Administration Headache Hydrocodone Bitart/Acetaminophen 1 tab 01/25/21 17:16 01/27/21 22:37 Hydrocodone/Acetaminophen (*Crx) 5-325 Mg Tablet PO 1 tab Q6H PRN Administration Pain Rated 6 or Greater Allopurinol 300 mg 01/25/21 08:00 02/01/21 08:09 Allopurinol 300 Mg Tablet PO 300 mg DAILY@0800 FLORIN Administration Ascorbic Acid 1,000 mg 01/25/21 09:00 02/01/21 08:08 Ascorbic Acid 500 Mg Tablet PO 1,000 mg DAILY FLORIN Administration Aspirin 81 mg 01/25/21 09:00 02/01/21 08:08 Aspirin 81 Mg Enteric Tablet PO 81 mg DAILY FLORIN Administration Atorvastatin Calcium 40 mg 01/25/21 09:00 02/01/21 08:09 Atorvastatin 40 Mg Tablet PO 40 mg DAILY FLORIN Administration Cyclobenzaprine HCl 10 mg 01/25/21 17:15 01/29/21 13:50 Cyclobenzaprine Hcl 10 Mg Tablet PO 10 mg Q8H PRN Administration Muscle Spasm Lisinopril 20 mg 01/25/21 09:00 02/01/21 08:09 Lisinopril
--- NOTE | 2021-02-01 13:10 | PCDIET ---
Nutrition Follow-Up Complete: No nutrition diagnosis at this time. Nutrition Goal: Patient to consume 75% of meals or greater. Goal met. Patient consuming 75-100% of meals on heart healthy diet and reports good appetite. Stroke MNT provided this date. Last recorded weight is 69.1 kg. Recommend obtaining new weight. Bowel Motility: +BM on 01/31/21. Labs Reviewed: Hgb (10.6), Hct (32.9), Ca (8.3) Meds Noted: Vitamin C, Lipitor, Lisinopril Additional Notes: No documented skin breakdown. Will continue to monitor with same goal. Nutrition Monitoring and Evaluation: Follow up every 7 days.
[2021-02-01 14:00] VITALS: BP 116/50; PULSE 83; RESP 18; TEMP 36; O2SAT 99
[2021-02-01 20:30] VITALS: PULSE 89; RESP 18; O2SAT 98
[2021-02-01 21:51] VITALS: BP 140/66; PULSE 89; RESP 18; TEMP 36.4; O2SAT 98
[2021-02-02 05:48] VITALS: BP 115/56; PULSE 83; RESP 16; TEMP 35.8; O2SAT 100
[2021-02-02] MEDS: ASCORBIC ACID 500 MG TABLET 1000 MG PO (08:26)
[2021-02-02] MEDS: allopurinoL 300 MG TABLET PO (08:26)
[2021-02-02] MEDS: ATORVASTATIN 40 MG TABLET PO (08:26)
[2021-02-02] MEDS: ASPIRIN 81 MG ENTERIC TABLET PO (08:27)
[2021-02-02] MEDS: lisinopriL 20 MG TABLET PO (08:27)
[2021-02-02] MEDS: CYCLOBENZAPRINE HCL 10 MG TABLET PO (09:42)
[2021-02-02 14:00] VITALS: BP 105/78; PULSE 90; RESP 16; TEMP 36.2; O2SAT 97
--- NOTE | 2021-02-02 14:46 | WPDNEURORHBP ---
Subjective Date/time seen: 02/02/21 14:46 Interval history: This is a 75-year-old female with past medical history of adiposity, hypertension, hyperlipidemia, hypertrophic cardiomyopathy, and gout who presented to [facility] on 01/15/2021 with right-sided weakness. 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 Patient was transferred to [place] on 01/17/2021 for further workup patient underwent angioplasty and stenting on 01/21/2021. Patient will remain on aspirin and Brilinta. Patient voices no other complaint. Patient demonstrates difficulty with medicine mgmt. Review of Systems Review of Systems: All systems reviewed & are unremarkable except as noted in HPI and below Functional Status Ambulation Ability Ability to Ambulate 10 Feet: Independent Ability to Ambulate 50 Feet With 2 Turns: Independent Ability to Ambulate 150 Feet: Standby Assistance Ambulation Assistive Devices: None Transfers Ability Ability to Transfer In/Out of Chair: Independent Exam Narrative: Exam Narrative: Head is normocephalic.External ocular muscles are intact. Face is symmetrical. Speech is fluent. Cognition is improving. Mood is bright. Patient has delay with categorization and sequencing is intact. Heart rate and rhythm is regular. Lungs are clear to auscultation. Abdomen is soft nontender. Musculoskeletal exam: Left upper and lower extremity strength are 4/5 right lower extremity strength is 4- out of 5 right upper extremity tone is flaccid. Strength is 1-2at shoulder, and distally it is trace. Motor recovery noted in a flexor synergy pattern. Patient is independent with bed mobility and transfers. Patient requires standby assistance to contact guard without a device 150 ft. Stairs are standby assistance. Patient requires moderate assistance for upper extremity ADLs and minimal assistance for lower extremity ADLs. Bathing is at min assist. Toileting ranges from Min to moderate assistance. Cognition continues to improve. Medicine management demonstrates impairment form discerning once a day to one a day . Dtr was present during ST session this week and was made aware that she will need to oversee medicine mgmt. Objective Data Vital Signs Vital Signs: Vital Signs - 24 hr 02/01/21 20:30 02/01/21 21:51 02/02/21 05:48 Temperature 36.4 C 35.8 C L Pulse Rate 89 89 83 Respiratory Rate 18 18 16 Blood Pressure 140/66 115/56 L Pulse Oximetry 98 98 100 02/02/21 14:00 Temperature 36.2 C L Pulse Rate 90 Respiratory Rate 16 Blood Pressure 105/78 Pulse Oximetry 97 Intake/Output Intake/Output: Intake & Output 01/30/21 01/31/21 02/01/21 02/02/21 23:59 23:59 23:59 23:59 Intake Total 720 639 594 7366 Balance 720 562 774 7738 Meds/Results Medications: Active Medications Generic Name Dose Route Start Last Admin Trade Name Ford PRN Reason Stop Dose Admin Acetaminophen 650 mg 01/25/21 14:04 01/31/21 01:43 Acetaminophen 325 Mg Tablet PO 650 mg Q4H PRN Administration Headache Hydrocodone Bitart/Acetaminophen 1 tab 01/25/21 17:16 01/27/21 22:37 Hydrocodone/Acetaminophen (*Crx) 5-325 Mg Tablet PO 1 tab Q6H PRN Administration Pain Rated 6 or Greater Allopurinol 300 mg 01/25/21 08:00 02/02/21 08:26 Allopurinol 300 Mg Tablet PO 300 mg DAILY@0800 FLORIN Administration Ascorbic Acid 1,000 mg 01/25/21 09:00 02/02/21 08:26 Ascorbic Acid 500 Mg Tablet PO 1,000 mg DAILY FLORIN Administration Aspirin 81 mg 01/25/21 09:00 02/02/21 08:27 Aspirin 81 Mg Enteric Tablet PO 81 mg DAILY FLORIN Administration Atorvastatin Calcium 40 mg 01/25/21 09:00 02/02/21 08:26 Atorvastatin 40 Mg Tablet PO 40 mg DAILY FLORIN Administration Cyclobenzaprine HCl 10 mg 01/25/21 17:15 02/02/21 09:42 Cyclobenzaprine Hcl 10 Mg Tablet PO 10 mg Q8H PRN Administration Muscle Spasm Lisinopril 20 mg 01/25/21 09:00 02/02/21 08:27 Lis
[2021-02-02 20:20] VITALS: PULSE 75; RESP 18; O2SAT 97
[2021-02-02 20:30] VITALS: BP 114/61; PULSE 75; RESP 18; TEMP 36.9; O2SAT 97
[2021-02-03 05:19] VITALS: BP 106/56; PULSE 77; RESP 18; TEMP 37; O2SAT 98
[2021-02-03] MEDS: ATORVASTATIN 40 MG TABLET PO (08:41)
[2021-02-03] MEDS: ASCORBIC ACID 500 MG TABLET 1000 MG PO (08:41)
[2021-02-03] MEDS: lisinopriL 20 MG TABLET PO (08:41)
[2021-02-03] MEDS: ASPIRIN 81 MG ENTERIC TABLET PO (08:41)
[2021-02-03] MEDS: allopurinoL 300 MG TABLET PO (08:41)
[2021-02-03] MEDS: CYCLOBENZAPRINE HCL 10 MG TABLET PO ×2 (08:42→20:26)
[2021-02-03] MEDS: ACETAMINOPHEN 325 MG TABLET 650 MG PO (13:05)
--- NOTE | 2021-02-03 13:29 | WPDNEURORHBP ---
Subjective Date/time seen: 02/03/21 13:29 Interval history: This is a 75-year-old female with past medical history of adiposity, hypertension, hyperlipidemia, hypertrophic cardiomyopathy, and gout who presented to [facility] on 01/15/2021 with right-sided weakness. 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 Patient was transferred to [place] on 01/17/2021 for further workup patient underwent angioplasty and stenting on 01/21/2021. Patient will remain on aspirin and Brilinta. Patient voices no other complaint. Patient demonstrates difficulty with medicine mgmt. Daughter present and reviewed overall progress. Patient is doing well and can be safely discharged earlier. Daughter aware of patient's deficits. Review of Systems Review of Systems: All systems reviewed & are unremarkable except as noted in HPI and below Functional Status Ambulation Ability Ability to Ambulate 10 Feet: Independent Ability to Ambulate 50 Feet With 2 Turns: Independent Ability to Ambulate 150 Feet: Independent Ambulation Assistive Devices: None Transfers Ability Ability to Transfer In/Out of Chair: Independent Exam Narrative: Exam Narrative: Head is normocephalic.External ocular muscles are intact. Face is symmetrical. Speech is fluent. Cognition is improving. Mood is bright. Patient has delay with categorization and sequencing is intact. Heart rate and rhythm is regular. Lungs are clear to auscultation. Abdomen is soft nontender. Musculoskeletal exam: Left upper and lower extremity strength are 4/5 right lower extremity strength is 4- out of 5 right upper extremity tone is flaccid. Strength is 1-2at shoulder, and distally it is trace. Motor recovery noted in a flexor synergy pattern. Patient is independent with bed mobility and transfers. Patient requires standby assistance to contact guard without a device 150 ft. Stairs are standby assistance. Patient requires moderate assistance for upper extremity ADLs and minimal assistance for lower extremity ADLs. Bathing is at min assist. Toileting ranges from Min to moderate assistance. Cognition continues to improve. Medicine management demonstrates impairment form discerning once a day to one a day . Dtr was present during ST session this week and was made aware that she will need to oversee medicine mgmt. Motor recovery noted to RUE Objective Data Vital Signs Vital Signs: Vital Signs - 24 hr 02/02/21 14:00 02/02/21 20:20 02/02/21 20:30 Temperature 36.2 C L 36.9 C Pulse Rate 90 75 75 Respiratory Rate 16 18 18 Blood Pressure 105/78 114/61 Pulse Oximetry 97 97 97 02/03/21 05:19 Temperature 37.0 C Pulse Rate 77 Respiratory Rate 18 Blood Pressure 106/56 L Pulse Oximetry 98 Intake/Output Intake/Output: Intake & Output 01/31/21 02/01/21 02/02/21 02/03/21 23:59 23:59 23:59 23:59 Intake Total 727 708 7175 420 Balance 532 458 2819 420 Meds/Results Medications: Active Medications Generic Name Dose Route Start Last Admin Trade Name Freq PRN Reason Stop Dose Admin Acetaminophen 650 mg 01/25/21 14:04 02/03/21 13:05 Acetaminophen 325 Mg Tablet PO 650 mg Q4H PRN Administration Headache Hydrocodone Bitart/Acetaminophen 1 tab 01/25/21 17:16 01/27/21 22:37 Hydrocodone/Acetaminophen (*Crx) 5-325 Mg Tablet PO 1 tab Q6H PRN Administration Pain Rated 6 or Greater Allopurinol 300 mg 01/25/21 08:00 02/03/21 08:41 Allopurinol 300 Mg Tablet PO 300 mg DAILY@0800 FLORIN Administration Ascorbic Acid 1,000 mg 01/25/21 09:00 02/03/21 08:41 Ascorbic Acid 500 Mg Tablet PO 1,000 mg DAILY FLORIN Administration Aspirin 81 mg 01/25/21 09:00 02/03/21 08:41 Aspirin 81 Mg Enteric Tablet PO 81 mg DAILY FLORIN Administration Atorvastatin Calcium 40 mg 01/25/21 09:00 02/03/21 08:41 Atorvastatin 40 Mg Tablet PO 40 mg DAILY FLORIN Administration Cyclobenzaprine HCl 10 mg 01/25/21 17:
[2021-02-03 14:00] VITALS: BP 116/63; PULSE 96; RESP 14; TEMP 36; O2SAT 99
[2021-02-03 22:00] VITALS: BP 123/72; PULSE 88; RESP 16; TEMP 36.3; O2SAT 97
[2021-02-04 05:22] VITALS: BP 123/46; PULSE 89; RESP 16; TEMP 36; O2SAT 100
[2021-02-04] MEDS: lisinopriL 20 MG TABLET PO (08:23)
[2021-02-04] MEDS: ASPIRIN 81 MG ENTERIC TABLET PO (08:23)
[2021-02-04] MEDS: ASCORBIC ACID 500 MG TABLET 1000 MG PO (08:23)
[2021-02-04] MEDS: ATORVASTATIN 40 MG TABLET PO (08:23)
[2021-02-04] MEDS: allopurinoL 300 MG TABLET PO (08:23)
[2021-02-04] MEDS: ACETAMINOPHEN 325 MG TABLET 650 MG PO (08:26)
--- NOTE | 2021-02-04 10:10 | WPDNEURORHBP ---
Subjective Date/time seen: 02/04/21 10:10 Interval history: This is a 75-year-old female with past medical history of adiposity, hypertension, hyperlipidemia, hypertrophic cardiomyopathy, and gout who presented to [facility] on 01/15/2021 with right-sided weakness. 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 Patient was transferred to [place] on 01/17/2021 for further workup patient underwent angioplasty and stenting on 01/21/2021. Patient will remain on aspirin and Brilinta. Patient voices no other complaint. Patient demonstrates difficulty with medicine mgmt. Daughter present and reviewed overall progress. Patient is doing well and can be safely discharged earlier. Daughter aware of patient's deficits. Review of Systems Review of Systems: All systems reviewed & are unremarkable except as noted in HPI and below Functional Status Ambulation Ability Ability to Ambulate 10 Feet: Independent Ability to Ambulate 50 Feet With 2 Turns: Independent Ability to Ambulate 150 Feet: Independent Ambulation Assistive Devices: None Transfers Ability Ability to Transfer In/Out of Chair: Independent Exam Narrative: Exam Narrative: Head is normocephalic.External ocular muscles are intact. Face is symmetrical. Speech is fluent. Cognition is improving. Mood is bright. Patient has delay with categorization and sequencing is intact. Heart rate and rhythm is regular. Lungs are clear to auscultation. Abdomen is soft nontender. Musculoskeletal exam: Left upper and lower extremity strength are 4/5 right lower extremity strength is 4- out of 5 right upper extremity tone is flaccid. Strength is 1-2at shoulder, and distally it is trace. Motor recovery noted in a flexor synergy pattern. Patient is independent with bed mobility and transfers. Patient requires standby assistance to contact guard without a device 150 ft. Stairs are standby assistance. Patient requires moderate assistance for upper extremity ADLs and minimal assistance for lower extremity ADLs. Bathing is at min assist. Toileting ranges from Min to moderate assistance. Cognition continues to improve. Medicine management demonstrates impairment form discerning once a day to one a day . Dtr was present during ST session this week and was made aware that she will need to oversee medicine mgmt. Motor recovery noted to RUE Objective Data Vital Signs Vital Signs: Vital Signs - 24 hr 02/03/21 14:00 02/03/21 22:00 02/04/21 05:22 Temperature 36.0 C L 36.3 C L 36.0 C L Pulse Rate 96 88 89 Respiratory Rate 14 16 16 Blood Pressure 116/63 123/72 123/46 L Pulse Oximetry 99 97 100 Intake/Output Intake/Output: Intake & Output 02/01/21 02/02/21 02/03/21 02/04/21 23:59 23:59 23:59 23:59 Intake Total 840 1560 660 240 Balance 840 1560 660 240 Meds/Results Medications: Active Medications Generic Name Dose Route Start Last Admin Trade Name Freq PRN Reason Stop Dose Admin Acetaminophen 650 mg 01/25/21 14:04 02/04/21 08:26 Acetaminophen 325 Mg Tablet PO 650 mg Q4H PRN Administration Headache Hydrocodone Bitart/Acetaminophen 1 tab 01/25/21 17:16 01/27/21 22:37 Hydrocodone/Acetaminophen (*Crx) 5-325 Mg Tablet PO 1 tab Q6H PRN Administration Pain Rated 6 or Greater Allopurinol 300 mg 01/25/21 08:00 02/04/21 08:23 Allopurinol 300 Mg Tablet PO 300 mg DAILY@0800 FLORIN Administration Ascorbic Acid 1,000 mg 01/25/21 09:00 02/04/21 08:23 Ascorbic Acid 500 Mg Tablet PO 1,000 mg DAILY FLORIN Administration Aspirin 81 mg 01/25/21 09:00 02/04/21 08:23 Aspirin 81 Mg Enteric Tablet PO 81 mg DAILY FLORIN Administration Atorvastatin Calcium 40 mg 01/25/21 09:00 02/04/21 08:23 Atorvastatin 40 Mg Tablet PO 40 mg DAILY FLORIN Administration Cyclobenzaprine HCl 10 mg 01/25/21 17:15 02/03/21 20:26 Cyclobenzaprine Hcl 10 Mg Tablet PO 10 mg Q8H PRN Administration Mus
[2021-02-04 14:00] VITALS: BP 116/55; PULSE 89; RESP 20; TEMP 35.9; O2SAT 100
[2021-02-04 21:24] VITALS: BP 124/70; PULSE 87; RESP 18; TEMP 36.4; O2SAT 94
[2021-02-05 06:00] VITALS: BP 97/71; PULSE 83; RESP 16; TEMP 36.3; O2SAT 95
[2021-02-05] MEDS: ATORVASTATIN 40 MG TABLET PO (08:12)
[2021-02-05] MEDS: lisinopriL 20 MG TABLET PO (08:12)
[2021-02-05] MEDS: ASCORBIC ACID 500 MG TABLET 1000 MG PO (08:12)
[2021-02-05] MEDS: ASPIRIN 81 MG ENTERIC TABLET PO (08:12)
[2021-02-05] MEDS: allopurinoL 300 MG TABLET PO (08:12)
--- NOTE | 2021-02-05 09:41 | WPDNEURORHBP ---
Subjective Date/time seen: 02/05/21 09:41 Interval history: This is a 75-year-old female with past medical history of adiposity, hypertension, hyperlipidemia, hypertrophic cardiomyopathy, and gout who presented to [facility] on 01/15/2021 with right-sided weakness. 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 Patient was transferred to [place] on 01/17/2021 for further workup patient underwent angioplasty and stenting on 01/21/2021. Patient will remain on aspirin and Brilinta. Patient voices no other complaint. Patient demonstrates difficulty with medicine mgmt. Patient is doing well. Daughter aware of patient's deficits. Patient is less hesitant about going home. Patient is aware that she is ready but enjoys her stay. Review of Systems Review of Systems: All systems reviewed & are unremarkable except as noted in HPI and below Functional Status Ambulation Ability Ability to Ambulate 10 Feet: Independent Ability to Ambulate 50 Feet With 2 Turns: Independent Ability to Ambulate 150 Feet: Independent Ambulation Assistive Devices: None Transfers Ability Ability to Transfer In/Out of Chair: Independent Exam Narrative: Exam Narrative: Head is normocephalic.External ocular muscles are intact. Face is symmetrical. Speech is fluent. Cognition is improving. Mood is bright. Patient has delay with categorization and sequencing is intact. Heart rate and rhythm is regular. Lungs are clear to auscultation. Abdomen is soft nontender. Musculoskeletal exam: Left upper and lower extremity strength are 4/5 right lower extremity strength is 4- out of 5 right upper extremity tone is flaccid. Strength is 1-2at shoulder, and distally it is trace. Motor recovery noted in a flexor synergy pattern. Motor recovery noted to RUE. Patient making progress in all therapies. Objective Data Vital Signs Vital Signs: Vital Signs - 24 hr 02/04/21 14:00 02/04/21 21:24 02/05/21 06:00 Temperature 35.9 C L 36.4 C 36.3 C L Pulse Rate 89 87 83 Respiratory Rate 20 18 16 Blood Pressure 116/55 L 124/70 97/71 L Pulse Oximetry 100 94 95 Intake/Output Intake/Output: Intake & Output 02/02/21 02/03/21 02/04/21 02/05/21 23:59 23:59 23:59 23:59 Intake Total 1560 660 720 360 Balance 1560 660 720 360 Meds/Results Medications: Active Medications Generic Name Dose Route Start Last Admin Trade Name Freq PRN Reason Stop Dose Admin Acetaminophen 650 mg 01/25/21 14:04 02/04/21 08:26 Acetaminophen 325 Mg Tablet PO 650 mg Q4H PRN Administration Headache Hydrocodone Bitart/Acetaminophen 1 tab 01/25/21 17:16 01/27/21 22:37 Hydrocodone/Acetaminophen (*Crx) 5-325 Mg Tablet PO 1 tab Q6H PRN Administration Pain Rated 6 or Greater Allopurinol 300 mg 01/25/21 08:00 02/05/21 08:12 Allopurinol 300 Mg Tablet PO 300 mg DAILY@0800 FLORIN Administration Ascorbic Acid 1,000 mg 01/25/21 09:00 02/05/21 08:12 Ascorbic Acid 500 Mg Tablet PO 1,000 mg DAILY FLORIN Administration Aspirin 81 mg 01/25/21 09:00 02/05/21 08:12 Aspirin 81 Mg Enteric Tablet PO 81 mg DAILY FLORIN Administration Atorvastatin Calcium 40 mg 01/25/21 09:00 02/05/21 08:12 Atorvastatin 40 Mg Tablet PO 40 mg DAILY FLORIN Administration Cyclobenzaprine HCl 10 mg 01/25/21 17:15 02/03/21 20:26 Cyclobenzaprine Hcl 10 Mg Tablet PO 10 mg Q8H PRN Administration Muscle Spasm Lisinopril 20 mg 01/25/21 09:00 02/05/21 08:12 Lisinopril 20 Mg Tablet PO 20 mg DAILY FLORIN Administration Nonform Ticagrelor 1 each 01/31/21 09:00 02/05/21 08:12 45 Mg Tablet PO 1 each Q12HR FLORIN Administration Sodium Chloride 1 spray 01/28/21 17:25 01/30/21 08:31 Saline 0.65% Steven Soln 44 Ml Btl NASAL 1 spray Q6HR PRN Administration Congestion Progress Note: A&P Assessment and Plan (1) Right hemiplegia: Code(s): G81.91 - Hemiplegia, unspecified affecting
[2021-02-05] MEDS: ACETAMINOPHEN 325 MG TABLET 650 MG PO (11:32)
[2021-02-05 14:00] VITALS: BP 111/64; PULSE 89; RESP 18; TEMP 36; O2SAT 94
[2021-02-05 19:58] VITALS: BP 112/56; PULSE 85; RESP 18; TEMP 35.9; O2SAT 100
[2021-02-06 05:14] VITALS: BP 116/57; PULSE 76; RESP 18; TEMP 36.1; O2SAT 100
[2021-02-06] MEDS: ASPIRIN 81 MG ENTERIC TABLET PO (09:31)
[2021-02-06] MEDS: allopurinoL 300 MG TABLET PO (09:31)
[2021-02-06] MEDS: lisinopriL 20 MG TABLET PO (09:31)
[2021-02-06] MEDS: ATORVASTATIN 40 MG TABLET PO (09:31)
[2021-02-06] MEDS: ASCORBIC ACID 500 MG TABLET 1000 MG PO (09:31)
[2021-02-06] MEDS: ACETAMINOPHEN 325 MG TABLET 650 MG PO (12:41)
[2021-02-06 14:00] VITALS: BP 113/47; PULSE 84; RESP 18; TEMP 36.4; O2SAT 97
--- NOTE | 2021-02-06 16:03 | WPDNEURORHBP ---
Subjective Date/time seen: 02/06/21 16:03 Interval history: This is a 75-year-old female with past medical history of adiposity, hypertension, hyperlipidemia, hypertrophic cardiomyopathy, and gout who presented to [facility] on 01/15/2021 with right-sided weakness. 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 Patient was transferred to [place] on 01/17/2021 for further workup patient underwent angioplasty and stenting on 01/21/2021. Patient will remain on aspirin and Brilinta. Patient voices complaints of on again off again back pain Patient demonstrates difficulty with medicine mgmt. Patient is doing well. Daughter aware of patient's deficits. Patient is less hesitant about going home. Patient is aware that she is ready but enjoys her stay. patient is seen during physical therapy. Patient in good spirits. Review of Systems Review of Systems: All systems reviewed & are unremarkable except as noted in HPI and below Functional Status Ambulation Ability Ability to Ambulate 10 Feet: Independent Ability to Ambulate 50 Feet With 2 Turns: Independent Ability to Ambulate 150 Feet: Independent Ambulation Assistive Devices: None Transfers Ability Ability to Transfer In/Out of Chair: Independent Exam Narrative: Exam Narrative: Head is normocephalic.External ocular muscles are intact. Face is symmetrical. Speech is fluent. Cognition is improving. Mood is bright. Patient has delay with categorization and sequencing is intact. Heart rate and rhythm is regular. Lungs are clear to auscultation. Abdomen is soft nontender. Musculoskeletal exam: Left upper and lower extremity strength are 4/5 right lower extremity strength is 4- out of 5 right upper extremity tone is flaccid. Strength is 1-2at shoulder, and distally it is 1/5. Motor recovery noted in a flexor synergy pattern. Motor recovery noted to RUE. Patient making progress in all therapies. Patient is independent with bed mobility transfers and gait without adaptive devices. No DME is recommended from physical therapy Objective Data Vital Signs Vital Signs: Vital Signs - 24 hr 02/05/21 19:58 02/06/21 05:14 02/06/21 14:00 Temperature 35.9 C L 36.1 C L 36.4 C L Pulse Rate 85 76 84 Respiratory Rate 18 18 18 Blood Pressure 112/56 L 116/57 L 113/47 L Pulse Oximetry 100 100 97 Intake/Output Intake/Output: Intake & Output 02/03/21 02/04/21 02/05/21 02/06/21 23:59 23:59 23:59 23:59 Intake Total 660 720 840 840 Balance 660 720 840 840 Meds/Results Medications: Active Medications Generic Name Dose Route Start Last Admin Trade Name Freq PRN Reason Stop Dose Admin Acetaminophen 650 mg 01/25/21 14:04 02/06/21 12:41 Acetaminophen 325 Mg Tablet PO 650 mg Q4H PRN Administration Headache Hydrocodone Bitart/Acetaminophen 1 tab 01/25/21 17:16 01/27/21 22:37 Hydrocodone/Acetaminophen (*Crx) 5-325 Mg Tablet PO 1 tab Q6H PRN Administration Pain Rated 6 or Greater Allopurinol 300 mg 01/25/21 08:00 02/06/21 09:31 Allopurinol 300 Mg Tablet PO 300 mg DAILY@0800 FLORIN Administration Ascorbic Acid 1,000 mg 01/25/21 09:00 02/06/21 09:31 Ascorbic Acid 500 Mg Tablet PO 1,000 mg DAILY FLORIN Administration Aspirin 81 mg 01/25/21 09:00 02/06/21 09:31 Aspirin 81 Mg Enteric Tablet PO 81 mg DAILY FLORIN Administration Atorvastatin Calcium 40 mg 01/25/21 09:00 02/06/21 09:31 Atorvastatin 40 Mg Tablet PO 40 mg DAILY FLORIN Administration Cyclobenzaprine HCl 10 mg 01/25/21 17:15 02/03/21 20:26 Cyclobenzaprine Hcl 10 Mg Tablet PO 10 mg Q8H PRN Administration Muscle Spasm Lisinopril 20 mg 01/25/21 09:00 02/06/21 09:31 Lisinopril 20 Mg Tablet PO 20 mg DAILY FLORIN Administration Nonform Ticagrelor 1 each 01/31/21 09:00 02/06/21 09:31 45 Mg Tablet PO 1 each Q12HR FLORIN Administration Sodium Chloride 1 spray 01/28/21 17:25 01/30/21 08:31
[2021-02-06 21:56] VITALS: BP 115/62; PULSE 83; RESP 16; TEMP 36.2; O2SAT 97
[2021-02-07 06:00] VITALS: BP 110/65; PULSE 78; RESP 18; TEMP 36.5; O2SAT 99
[2021-02-07] MEDS: allopurinoL 300 MG TABLET PO (07:46)
[2021-02-07] MEDS: ASCORBIC ACID 500 MG TABLET 1000 MG PO (07:46)
[2021-02-07] MEDS: lisinopriL 20 MG TABLET PO (07:46)
[2021-02-07] MEDS: ASPIRIN 81 MG ENTERIC TABLET PO (07:46)
[2021-02-07] MEDS: ATORVASTATIN 40 MG TABLET PO (07:46)
--- NOTE | 2021-02-07 13:22 | PM.DS ---
DS: Admitting Diagnosis Admitting Diagnosis Admitting Diagnosis: Left a septal and parietal lobe infarct with right upper extremity plegia DS: Discharge Diagnosis Discharge Diagnosis (1) Right hemiplegia: Code(s): G81.91 - Hemiplegia, unspecified affecting right dominant side Status: Acute (2) Acute cerebrovascular accident: Code(s): I63.9 - Cerebral infarction, unspecified Status: Acute (3) Hypertrophic obstructive cardiomyopathy: Code(s): I42.1 - Obstructive hypertrophic cardiomyopathy Status: Chronic (4) Adiposity: Code(s): E66.9 - Obesity, unspecified Status: Acute (5) Hypertension: Qualifiers: Hypertension type: essential hypertension Qualified Code(s): I10 - Essential (primary) hypertension Code(s): I10 - Essential (primary) hypertension Status: Acute (6) Gout, unspecified: Code(s): M10.9 - Gout, unspecified Status: Acute (7) HOCM (hypertrophic obstructive cardiomyopathy): Code(s): I42.1 - Obstructive hypertrophic cardiomyopathy Status: Acute (8) Hyperlipidemia: Code(s): E78.5 - Hyperlipidemia, unspecified Status: Acute (9) Chronic low back pain: Code(s): M54.5 - Low back pain; G89.29 - Other chronic pain Status: Acute DS: Summary Hospital Course Hospital Course: see dictation Time Spent with Patient Time attestation: Total time spent providing and/or coordinating discharge services: Date/Time: 01/25/21 10:54 HISTORY OF PRESENT ILLNESS: This is a 75-year-old female with past medical history of adiposity, hypertension, hyperlipidemia, hypertrophic cardiomyopathy, and gout who presented [facility] on January 15, 2021 with progressive right upper extremity weakness. 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 CTA showed a near occlusion of her left carotid bulb and left-sided watershed infarcts. Dominic showed an ejection fraction of 76%. MRI showed large distribution of patchy infarcts in distribution of the left middle cerebral artery. Patient was transferred to [facility] on 01/17/2021 for further workup. Cardiology was consulted to assess cardiac risk for CEA and ordered at TTE showing narrowing of the LV OT with no obvious outflow tract obstruction ejection fraction of 70 segs 70 5%, grade 2 diastolic dysfunction with Shabbir enteric shaped LV cavity. Patient was deemed high risk for CEA/stenting. Patient also underwent angioplasty and stenting on 01/21/2021. The procedure was successful with no residual stenosis of the left MCA. There was an attempt to place a distal embolic protection, however, secondary to cervical ICA tortuosity / loops that was unable to be placed. Final angiography demonstrated no evidence of thromboembolic complications. There was a small right groin hematoma noted. Neurology was consulted patient was placed on Plavix and to continue with aspirin 325 mg daily. Postprocedure the patient presented with hypotension and required fluid. Patient did require supplemental oxygen but is currently wean. Patient continued to have right upper extremity flaccidity with decreased safety awareness and decreased gross motor control with impaired balance. It was deemed that patient is not responsive to Plavix and she was switched to Brilinta 45 mg and ASA 325mg REHAB HOSPITAL COURSE: Patient had acute on chronic back pain that was treated with p.r.n. Flexeril. Patient did well with physical therapy she was essentially independent to Superivision with ADLs transfers and gait. Right upper extremity remained weak with gross strength of roughly 3/5 at time of discharge. Cognition was deemed within normal limits after speech therapies treatment. ADMISSION FUNCTION: Eating was independent Oral Care was partial Toileting Hygiene was to moderate assist Shower/Bathing was partial to moderate assist Upper Body Dressing
== END 2021-02-07 12:50 | disposition home or self-care (01) | DRG 57 ==
PROVIDERS: Admitting Provider Physical Medicine & Rehabilitation; PCP Internal Medicine; Visit Provider Physical Medicine & Rehabilitation
DX: I69.351 Hemiplegia and hemiparesis following cerebral infarction affecting right dominant side (principal); I42.1 Obstructive hypertrophic cardiomyopathy; I69.319 Unspecified symptoms and signs involving cognitive functions following cerebral infarction; E78.5 Hyperlipidemia, unspecified; E66.9 Obesity, unspecified; I10 Essential (primary) hypertension; I65.22 Occlusion and stenosis of left carotid artery; Z68.33 Body mass index [BMI] 33.0-33.9, adult; Z95.828 Presence of other vascular implants and grafts
CPT/HCPCS: 36415; 80048; 80061; 85025; 92507; 92523; 97110; 97112; 97116; 97129; 97130; 97161; 97166; 97530; 97535; 97542; A9270

== ENCOUNTER 2021-04-13 07:59 | Outpatient (CLI) | payer MEDICARE, SELFPAY ==
--- NOTE | ~2021-04-13 | US_ITS ---
EXAMINATION: US art doppler w press LE BI DATE: 04/13/2021 08:39 INDICATION: Lower limb pain TECHNIQUE: Segmental pressures and plethysmographic and Doppler waveforms of the brachial and lower e xtremity arteries were obtained. COMPARISON: None. FINDINGS: Right and left brachial artery pressures of 173 mm Hg and 180 mm Hg, respectively, are concordant (no rmal difference <= 30 mmHg). The right and left high-thigh pressure indices were unable to be obtaine d due to inability to occlude the vessels. The right ankle-brachial index (TAMMY) is 0.77 (normal >= 0.9-1). The right great toe-brachial index (T BI) is 0.63 (normal >= 0.6-0.8). The right lower extremity segmental pressure gradients are borderlin e increased between the right dorsalis pedis and dbiqu-lwv-gmas popliteal arteries (normal gradients <= 20-30 mmHg between adjacent levels on the same leg or the same levels on the two legs). Arterial w aveforms are biphasic with brisk systolic upstrokes throughout. The left TAMMY is 0.65. The left TBI is 0.61. The left lower extremity segmental pressure gradients are increased between the left posterior tibial and urxyo-ofb-lvqx popliteal arteries. Arterial waveform s are biphasic with brisk systolic upstrokes throughout. IMPRESSION: 1. Bilateral arterial occlusive disease with mildly decreased right and moderately decreased left TAMMY s. Reviewed, dictated and finalized at location A. IMPRESSION: 1. Bilateral arterial occlusive disease with mildly decreased right and moderat tia decreased left ABIs.
== END 2021-04-13 08:00 | disposition home or self-care (01) ==
PROVIDERS: PCP Internal Medicine; Visit Provider Internal Medicine
DX: I73.9 Peripheral vascular disease, unspecified (principal)
CPT/HCPCS: 93923

== ENCOUNTER 2021-08-08 15:16 | Outpatient (CLI) | payer MEDICARE, SELFPAY ==
--- NOTE | ~2021-08-08 | XR_ITS ---
EXAMINATION:XR cervical spine 4-5V DATE: 08/08/2021 15:47 INDICATION: Neck pain TECHNIQUE: AP, lateral, lateral swimmers and odontoid views of the cervical spine are provided. COMPARISON: 06/16/2009 FINDINGS: There are 2 mm of anterolisthesis of C4 on C5, worsened since the comparison examination, a nd 2 mm of stable anterolisthesis of C5 on C6. The odontoid is intact. No fracture is identified. The re is severe loss of intervertebral disc space height at C3-4, C4-5, and C6-7. There is severe multil evel facet and uncovertebral joint osteoarthritis. Small degenerative osteophytes project from the an terior endplates of multiple vertebral bodies. A left carotid artery stent has been placed. Preverteb ral soft tissues are normal. IMPRESSION: 1. Severe cervical spondylosis with interval worsening since the comparison examination. Reviewed, dictated and finalized at location A. IMPRESSION: 1. Severe cervical spondylosis with interval worsening since the comparison exa mination.
== END 2021-08-08 15:17 | disposition home or self-care (01) ==
LOC: ANHIMG 15:23
PROVIDERS: PCP Internal Medicine; Visit Provider Physician Assistant
DX: M47.892 Other spondylosis, cervical region (principal)
CPT/HCPCS: 72050

== ENCOUNTER 2021-09-27 12:26 | Outpatient (CLI) | payer MEDICARE, SELFPAY ==
--- NOTE | ~2021-09-27 | XR_ITS ---
XR thoracic spine 3V DATE: 09/27/2021 13:20 INDICATION: Back pain, radiculopathy. TECHNIQUE: AP, lateral, swimmer views COMPARISON: None FINDINGS: Carotid artery stent overlies the cervical area. There is diffuse osteopenia. There is anterolisthesis at C4-5 and C5-6 and C7-T1. There is multilevel degenerative disc disease of the cervical spine. There is prominent degenerative spurring of the mid and lower thoracic spine. The thoracic pedicles are intact. No fracture or dislocation or bone destruction is evident. No winston magdalena soft tissue thickening. There is levoscoliosis of the thoracolumbar spine. IMPRESSION: Diffuse osteopenia Degenerative spurring Reviewed, dictated and finalized at location A. AL SURGEON
--- NOTE | ~2021-09-27 | XR_ITS ---
XR lumbar spine 2-3V DATE: 09/27/2021 13:20 INDICATION: Back pain, radiculopathy. TECHNIQUE: AP, lateral, coned lateral lumbosacral views COMPARISON: lumbar spine FINDINGS: There is diffuse osteopenia. There is 14 degrees rotatory levoscoliosis measured from T12 to L3. There is multilevel degenerative disc disease, most pronounced at L1-2, L2-3 and L5-S1. There is degenerative change at the apophyseal joints of the mid and lower lumbar and lumbosacral spi ne, with associated grade 1 anterolisthesis at L4-5. The lumbar pedicles are intact. No lumbar spine fracture or bone destruction is detected. The sacroiliac joints are intact. There is abdominal aortic and iliac arterial calcification, without apparent aneurysm. IMPRESSION: Diffuse osteopenia Rotatory levoscoliosis Multilevel degenerative disc disease Grade 1 anterolisthesis at L4-5 due to degenerative change at the apophyseal joints Reviewed, dictated and finalized at location A. WHEELER IMPRESSION: Diffuse osteopenia Rotatory levoscoliosis Multilevel degenerative disc disease Grade 1 anterolisthesis at L4-5 due to degenerative change at the apophyseal goldy ints
--- NOTE | ~2021-09-27 | CT_ITS ---
EXAMINATION: CT lumbar spine [facility] EXAM DATE: 09/27/2021 12:59 INDICATION: Chronic low back pain. TECHNIQUE: Spiral CT of the lumbar spine was performed without contrast. Axial, coronal and sagittal images lumbar spine were reviewed. The dose-length product (DLP) for this examination was 964.33 mG y-cm. The exposure was tailored according to patient size (auto mA exposure control), and iterative reconstruction (ASIR) was used as additional dose reduction technique. There is no prior study for comparison. FINDINGS: There is 2-3 mm anterolisthesis L4 on L5. Moderate disc disease at T12/L1, L1-2 and L2-3, m ild to moderate at the other lumbar levels. Mild to moderate sigmoid diverticulosis. Moderate aortoil iac arterial sclerosis. There is mild thoracolumbar levoscoliosis. There are no acute fractures ident ified. No spondylolysis. Level by level evaluation: T12-L1: There is a mild to moderate diffuse disc bulge. Facet arthropathy: Mild. Neural foraminal stenosis: Mild right. Central canal stenosis: Mild. L1-L2: There is a mild to moderate diffuse disc bulge. Facet arthropathy: Mild. Neural foraminal stenosis: Mild to moderate right. Central canal stenosis: Mild. L2-L3: There is a mild to moderate diffuse disc bulge. Facet arthropathy: Mild to moderate. Neural foraminal stenosis: Mild right mild bilateral. Central canal stenosis: No stenosis. L3-L4: There is a mild to moderate diffuse disc bulge. Facet arthropathy: Moderate to severe. Neural foraminal stenosis: Mild to moderate bilateral . Central canal stenosis: Moderate. L4-L5: There is a mild to moderate diffuse disc bulge. Facet arthropathy: Severe, but fused. Neural foraminal stenosis: Mild left. Central canal stenosis: Mild to moderate. L5-S1: There is a mild diffuse disc bulge. Facet arthropathy: Severe left, moderate right, but fused. Neural foraminal stenosis: Mild to moderate left, mild right. Central canal stenosis: No stenosis. IMPRESSION: 1. Mild thoracolumbar levoscoliosis. 2. Advanced but fused lower lumbar facet arthropathy. 3. Overall moderate lumbar spondylosis. Reviewed, dictated and finalized at location B. FEEDER
== END 2021-09-27 12:27 | disposition home or self-care (01) ==
LOC: ANHIMG 12:33
PROVIDERS: PCP Internal Medicine; Visit Provider Nurse Practitioner Family
DX: M47.26 Other spondylosis with radiculopathy, lumbar region (principal); M85.88 Other specified disorders of bone density and structure, other site; M51.36 Other intervertebral disc degeneration, lumbar region
CPT/HCPCS: 72072; 72100; 72131

== ENCOUNTER 2022-07-05 01:22 | Day surgery (SDC) | payer MEDICARE, SELFPAY ==
[2022-06-21 10:07] VITALS: BMI 34.0
--- NOTE | 2022-07-04 16:35 | PM.HPGS ---
History of Present Illness History of Present Illness Consent: Risks, benefits, and alternatives have been discussed and questions answered. Patient agrees to proceed with procedure. Chief complaint: neoplasm screening Narrative: Isela Shah is a 77 year old female referred for colon cancer screening. Her last colonoscopy was 10 years ago. Review of Systems Review of Systems: All systems reviewed & are unremarkable except as noted in HPI and below PMFSH Past Medical History Medical History Arthritis Chronic low back pain Diverticulitis Essential hypertension Gout Hemorrhoids Hyperlipidemia Hypertrophic obstructive cardiomyopathy Followed by Dr. Brian Michelle. Macular degeneration Overflow stress urinary incontinence in female Stroke Surgical History Surgical History History of ankle surgery ORIF of ankle fracture. History of arthroscopic knee surgery History of cervical polypectomy Family History Family History Sibling Family history of diabetes mellitus in first degree relative Mother Family history of pancreatic cancer Patient's mother is Father Patient's father is Family history of cardiovascular disease Family history of dementia Social History Social History Social History: Surrogate decision maker: Yue Leija, daughter. Code status: Full code. 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 Gender identity (if verbalized by the patient): Female Spiritual care concerns: No Meds Home Medications and Allergies Home Medications Medication Instructions Recorded Confirmed Type ascorbic acid (vitamin C) 1,000 mg 1 gm PO DAILY 01/26/20 07/05/22 History tablet multivitamin 1 tablet PO DAILY 05/01/22 07/05/22 History potassium 75 mg tablet 75 mg PO DAILY 05/01/22 07/05/22 History lisinopril 40 mg tablet 40 mg PO DAILY #90 tabs 05/15/22 07/05/22 Rx allopurinol 300 mg tablet 300 mg PO DAILY #90 tabs 06/15/22 07/05/22 Rx atorvastatin 40 mg tablet (Lipitor) 40 mg PO DAILY #90 tabs 06/18/22 07/05/22 Rx aspirin 81 mg chewable tablet 81 mg PO DAILY 06/21/22 07/05/22 History Allergies Allergy/AdvReac Type Severity Reaction Status Date / Time No Known Allergies Allergy Mild Verified 07/05/22 10:01 Exam Resp: Auscultation: clear to auscultation bilaterally Cardio: Rate: regular rate Rhythm: regular rhythm GI: GI Palp: Yes Soft to palpation and No Tenderness to palpation present (GI) Assessment and Plan Assessment and plan (1) Colon cancer screening: Code(s): Z12.11 - Encounter for screening for malignant neoplasm of colon Status: Acute Assessment and Plan: Colonoscopy with possible biopsy or polypectomy or cautery or injection of substances.
[2022-07-05] MEDS: LACTATED RINGERS 1,000 ML 150 ML IV CONT (10:19)
--- NOTE | 2022-07-05 10:28 | WPDANESEPPF ---
Anes - Initial Pre Proc Eval Procedure: Operation Date: 07/05/22 11:00 Proposed Procedures p Screening Colonoscopy - Mando Andrea MD Date/Time: 07/05/22 10:28 Surgeon: Mando Andrea MD Pre Op Diagnosis: neoplasm screening Patient Data Age: 77 Gender: F Height: 1.45 m Weight: 71.4 kg Allergies Allergy/AdvReac Type Severity Reaction Status Date / Time No Known Allergies Allergy Mild Verified 07/05/22 10:01 Home Medications Medication Instructions Recorded Confirmed Type ascorbic acid (vitamin C) 1,000 mg 1 gm PO DAILY 01/26/20 07/05/22 History tablet multivitamin 1 tablet PO DAILY 05/01/22 07/05/22 History potassium 75 mg tablet 75 mg PO DAILY 05/01/22 07/05/22 History lisinopril 40 mg tablet 40 mg PO DAILY #90 tabs 05/15/22 07/05/22 Rx allopurinol 300 mg tablet 300 mg PO DAILY #90 tabs 06/15/22 07/05/22 Rx atorvastatin 40 mg tablet (Lipitor) 40 mg PO DAILY #90 tabs 06/18/22 07/05/22 Rx aspirin 81 mg chewable tablet 81 mg PO DAILY 06/21/22 07/05/22 History Patient hx anesthesia problems: none Family hx anesthesia problems: none Results Review: All pre-operative results and documents have been reviewed as part of the pre-operative evaluation. [facility] Past Medical History Medical History Arthritis Chronic low back pain Diverticulitis Essential hypertension Gout Hemorrhoids Hyperlipidemia Hypertrophic obstructive cardiomyopathy Followed by Dr. Brian Michelle. Macular degeneration Overflow stress urinary incontinence in female Stroke Surgical History Surgical History History of ankle surgery ORIF of ankle fracture. History of arthroscopic knee surgery History of cervical polypectomy Family History Family History Sibling Family history of diabetes mellitus in first degree relative Mother Family history of pancreatic cancer Patient's mother is Father Patient's father is Family history of cardiovascular disease Family history of dementia Social History Social History Social History: Surrogate decision maker: Yue Leija, daughter. Code status: Full code. 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 Gender identity (if verbalized by the patient): Female Spiritual care concerns: No Anes - Eval Final PreProcedure Day of Procedure 07/05/22 10:28 Patient weight: obese Heart: regular rate and rhythm Lungs: clear to auscultation Airway: Mallampati scale class II Neurological: alert and oriented Last oral intake: >/= 8 hours ASA classification: III Emergent: no Anesthetic plan: proceed Anesthesia type and monitoring: general GIVS and standard monitoring Results Review: All pre-operative results and documents have been reviewed as part of the pre-operative evaluation. Informed Consent: The patient's anesthetic plan and its attendant risks and benefits were discussed with the patient/family/POA. Questions were solicited and answers provided to the satisfaction of the patient/family/POA.
[2022-07-05 11:18] VITALS: BP 133/62; PULSE 75; RESP 16; O2SAT 96
[2022-07-05 11:28] VITALS: BP 130/75; PULSE 79; RESP 20; O2SAT 100
[2022-07-05 11:38] VITALS: BP 136/73; PULSE 69; RESP 23; O2SAT 100
== END 2022-07-05 11:58 | disposition home or self-care (01) ==
PROVIDERS: PCP Internal Medicine; Visit Provider Internal Medicine Gastroenterology
PROC: 0DJD8ZZ Inspection of Lower Intestinal Tract, Via Natural or Artificial Opening Endoscopic (ICD-10-PCS; CPT 45378; principal; 2022-07-05 11:00)
DX: Z12.11 Encounter for screening for malignant neoplasm of colon (principal); K57.30 Diverticulosis of large intestine without perforation or abscess without bleeding; M19.90 Unspecified osteoarthritis, unspecified site; I10 Essential (primary) hypertension; M10.9 Gout, unspecified; E78.5 Hyperlipidemia, unspecified; I42.8 Other cardiomyopathies; H35.30 Unspecified macular degeneration; Z86.73 Personal history of transient ischemic attack (TIA), and cerebral infarction without residual deficits; Z79.82 Long term (current) use of aspirin; Z87.891 Personal history of nicotine dependence; E66.9 Obesity, unspecified; Z68.34 Body mass index [BMI] 34.0-34.9, adult
CPT/HCPCS: G0121; J2704; J7120

== ENCOUNTER 2023-05-08 13:21 | Outpatient (CLI) | payer MEDICARE, SELFPAY ==
--- NOTE | 2023-05-08 14:01 | ECHO_ITS ---
Patient Info Name: Isela Shah Age: 78 years : 1945 Gender: Female Ht: 57 in Wt: 157 lbs BSA: 1.73 m2 HR: 76 bpm BP: 158 / 89 mmHg Heart Rhythm: Sinus Rhythm Technical Quality: Good Exam Date: 05/08/2023 2:26 PM Exam Location: [facility] Patient Status: Outpatient Admit Date: 05/08/2023 Staff Ordering Physician: Brian Michelle DO Nicu Rn: Danae Alston RDCS Attending Provider: Brian Michelle DO Referring Physician: Miguel Angel TILLEY; Exam Type: CA echo doppler color flow Study Info Indications - obstructive hypertropic cardiomyopathy Complete two-dimensional, color flow and Doppler transthoracic echocardiogram is performed. Summary 1. Complete two-dimensional, color flow and Doppler transthoracic echocardiogram is performed. 2. Left ventricular chamber dimension is normal. 3. Ventricular septum is sigmoid shaped. Mild resting LVOT gradients of peak 6 mmHg and mean 3 mmHg suggestive of hypertrophic cardiomyopathy. 4. Left ventricular systolic function is normal, estimated at 60-65%. 5. There is mild concentric increased left ventricular wall thickness. 6. The left ventricular diastolic function is grade I diastolic dysfunction. 7. E/e' 18 is elevated. 8. Left atrial chamber dimension is mildly enlarged. 9. There is severe aortic valve sclerosis. 10. There is mild aortic valve stenosis with a peak velocity of 256 cm/s, mean gradient of 13 mmHg, and aortic valve area of 1.6 cm2. 11. The mitral valve has moderately calcified annulus. 12. No pulmonary hypertension, estimated pulmonary arterial systolic pressure is 8 mmHg. Left Ventricle E/e' 18 is elevated. Ventricular septum is sigmoid shaped. Mild resting LVOT gradients of peak 6 mmHg and mean 3 mmHg suggestive of hypertrophic cardiomyopathy. Left ventricular chamber dimension is normal. Left ventricular systolic function is normal, estimated at 60-65%. There is mild concentric increased left ventricular wall thickness. The left ventricular diastolic function is grade I diastolic dysfunction. Right Ventricle Right ventricular systolic function is normal and with normal TAPSE 1.8 cm. Right ventricular chamber dimension is normal. Left Atria Left atrial chamber dimension is mildly enlarged. Right Atria Right atrial chamber dimension is normal. Aortic Valve The aortic valve is trileaflet. There is severe aortic valve sclerosis. There is mild aortic valve stenosis with a peak velocity of 256 cm/s, mean gradient of 13 mmHg, and aortic valve area of 1.6 cm2. There is no aortic valve regurgitation. Pulmonic Valve There is no pulmonic regurgitation. Mitral Valve The mitral valve has moderately calcified annulus. There is no mitral valve stenosis. There is no mitral valve regurgitation. Tricuspid Valve There is no tricuspid valve regurgitation. No pulmonary hypertension, estimated pulmonary arterial systolic pressure is 8 mmHg. Pericardium/Pleural There is no pericardial effusion. Inferior Vena Cava Normal inferior vena cava with >50% collapse upon inspiration consistent with normal right atrial pressure, 5 mmHg. Aorta The aortic root size at the sinus of Valsalva is normal. Left Ventricular Outflow Tract Name Value Normal LVOT 2D LVOT Diameter 1.9 cm LVOT Doppler
== END 2023-05-08 13:22 | disposition home or self-care (01) ==
LOC: ANHCARD 13:24
PROVIDERS: PCP Internal Medicine; Visit Provider Internal Medicine Cardiovascular Disease
DX: I42.1 Obstructive hypertrophic cardiomyopathy (principal)
CPT/HCPCS: 93306

== ENCOUNTER 2025-08-04 09:40 | Outpatient (CLI) | payer MEDICARE, SELFPAY ==
--- NOTE | 2025-08-04 09:50 | ECHO_ITS ---
Patient Info Name: Isela Shah Age: 80 years : 1945 Gender: Female Ht: 57 in Wt: 158 lbs BSA: 1.73 m2 HR: 70 bpm BP: 107 / 72 mmHg Technical Quality: Fair Exam Date: 08/04/2025 10:10 AM Patient Status: O Admit Date: 08/04/2025 Exam Type: CA echo doppler color flow Complete two-dimensional, color flow and Doppler transthoracic echocardiogram is performed. Legal Operations Manager: Silvina Parker Attending Provider: Brian Michelle DO Summary 1. Complete two-dimensional, color flow and Doppler transthoracic echocardiogram is performed. 2. Left ventricular chamber dimension is normal. 3. Left ventricular systolic function is normal, estimated at 65-70. 4. There is mild concentric increased left ventricular wall thickness. 5. Ventricular septum is sigmoid shaped. No resting LVOT obstruction. 6. The left ventricular diastolic function is grade I diastolic dysfunction. 7. E/e' 19 is elevated. 8. Left atrial chamber dimension is mildly enlarged. 9. There is severe aortic valve sclerosis. 10. There is severe aortic valve stenosis with a peak velocity of 324 cm/s, mean gradient of 25 mmHg, and aortic valve area of 0.8 cm2. 11. There is trace aortic valve regurgitation. 12. The mitral valve has a severely calcified annulus. 13. There is mild to moderate mitral valve regurgitation. 14. There is trace tricuspid valve regurgitation. 15. No pulmonary hypertension, estimated pulmonary arterial systolic pressure is 34 mmHg. Left Ventricle E/e' 19 is elevated. Left ventricular chamber dimension is normal. Left ventricular systolic function is normal, estimated at 65-70. There is mild concentric increased left ventricular wall thickness. The left ventricular diastolic function is grade I diastolic dysfunction. Ventricular septum is sigmoid shaped. No resting LVOT obstruction. Right Ventricle Right ventricular chamber dimension is normal. Right ventricular systolic function is normal. Left Atria Left atrial chamber dimension is mildly enlarged. Right Atria Right atrial chamber dimension is normal. Aortic Valve The aortic valve is trileaflet. There is severe aortic valve sclerosis. There is severe aortic valve stenosis with a peak velocity of 324 cm/s, mean gradient of 25 mmHg, and aortic valve area of 0.8 cm2. There is trace aortic valve regurgitation. Pulmonic Valve There is no pulmonic regurgitation. Mitral Valve The mitral valve has a severely calcified annulus. There is no mitral valve stenosis. There is mild to moderate mitral valve regurgitation. Tricuspid Valve There is trace tricuspid valve regurgitation. No pulmonary hypertension, estimated pulmonary arterial systolic pressure is 34 mmHg. Pericardium/Pleural There is no pericardial effusion. Inferior Vena Cava Normal inferior vena cava with >50% collapse upon inspiration consistent with normal right atrial pressure, 5 mmHg. Aorta The aortic root size at the sinus of Valsalva is normal. Left Ventricular Outflow Tract Name Value Normal LVOT 2D LVOT Diameter 1.7 cm LVOT Doppler LVOT Peak Velocity 102 cm/s LVOT Peak Gradient 4 mmHg LVOT Mean Gradient 3 mmHg LVOT VTI 26 cm LVOT VTI/AV VTI Ratio 0.3 LVOT Stroke Volume 59 ml LVOT CO 11.5 l/min LVOT CI 6.6 l/min/m2 Pulmonic Valve Name Value Normal PV Doppler PV Peak Velocity 100 cm/s PV Peak Gradient 4 mmHg Mitral Valve Name Value Normal MV Doppler MV Peak Gradient 17 mmHg MV Mean Gradient 7 mmHg MV Area (Cont Eq VTI) 1.3 cm2 MV Diastolic Function MV E Peak Velocity 112 cm/s MV A Peak Velocity 172 cm/s MV E/A 0.6 MV Decel Time (PW) 312 ms MV Annular TDI MV E/e' (Septal) 24.2 MV E/e' (Lateral) 15.7 MV E/e' (Average) 19.9 Tricuspid Valve Name Value Normal TV Regurgitation Doppler TR Peak Velocity 270 cm/s TR Peak Gradient 29 mmHg Estimated PAP/RSVP RA Pressure 5 mmHg <=5 PA Systolic Pressure 34 mmHg <36 RV Systolic Pressure 34 mmHg <36 TV Annular TDI TV Lateral Megan s' Velocity 10.6 cm/s >=9.5 Aorta Name Value Normal Ascending Aorta Ao Root Diameter (MM) 2.7 cm Ao Root Diam Index (MM) 1.6 cm/m2 Aortic Valve Name Value Normal AV Doppler AV Peak Velocity 324 cm/s AV Peak Gradient 42 mmHg AV Mean Gradient 25 mmHg AV VTI 76 cm AV Area (Cont Eq VTI) 0.8 cm2 >=3.0 AV Area (Cont Eq Victoriano) 0.7 cm2 AV DI (Victoriano) 0.31 AV Regurgitation 2D LVOT Area 2.3 cm2 Ventricles Name Value Normal LV Dimensions 2D/MM IVS Diastolic Thickness (2D) 1.2 cm 0.6-1.0 LVID Diastole (2D) 3.8 cm 3.8-5.2 LVIW Diastolic Thickness (2D) 1.1 cm 0.6-0.9 LVID Systole (2D) 2.5 cm 2.2-3.5 LVOT Diameter 1.7 cm LV Mass (2D Cubed) 149.05 g 67.00-162.00 LV Mass Index (2D Cubed) 86 g/m2 43-95 Relative Wall Thickness (2D) 0.61 <=0.42 LV Fractional Shortening/Ejection Fraction 2D/MM LV Fractional Shortening (2D) 33 % 27-45 LV EF (2D Teichholz) 63 % LV Diastolic Volume (4C MOD) 91 ml LV EF (4C MOD) 75 % LV Diastolic Volume (2C MOD) 56 ml LV EF (2C MOD) 72 % LV Diastolic Volume (BP MOD) 73 ml 46-106 LV Diastolic Volume Index (BP MOD) 42 ml/m2 29-61 LV Systolic Volume (BP MOD) 19 ml 14-42 LV Systolic Volume Index (BP MOD) 11 ml/m2 8-24 LV EF (BP MOD) 73 % 54-74 LV Diastolic Length (4C) 7.3 cm LV Systolic Length (4C) 5.6 cm LV Stroke Volume (4C MOD) 68 ml RV Dimensions 2D/MM RVID Diastole (2D) 3.4 cm 2.1-3.5 Atria Name Value Normal LA Dimensions LA Dimension (MM) 4.4 cm 2.7-3.8 LA Volume (4C A-L) 44 ml LA Volume (BP A-L) 39 ml RA Dimensions RA Systolic Major [place] Length (4C) 3.4 cm 2.2-2.8 RA Area (4C) 8.2 cm2 <=18.0 Report Signatures
--- OUTSIDE RECORDS SUMMARY | 2025-08-04 10:26 | XMS_ITS | Encounter Summary ---
Author Organization [facility] Address [address] [place] [address] Care Team Providers Care Truck Service Technician Name Role Phone Cosme Ashton MD Primary Care Provider [phone] Cosme Ashton MD Primary Care Provider Panda Ashby MD Unavailable [phone] Encounter Details Date Type Department Care Team (Late st Contact Info) Description 12/04/2016 Orders Only [facility] ProviderKrzysztof MD [address] [place] [id number] Social History Tobacco Use Types Packs/Day Years Used Date Smoking Tobacco: Never Assessed Alcohol Use Standard Drinks/Week Comments No 0 (1 standard drink = 0.6 oz pur e alcohol) Comments Unknown Sex and Gender Information Value Date Recorded Sex Assigned at Not on file Legal Sex Female 2:37 AM CAPSULE FILLER Gender Identity Not on file Sexual Orientation Not on file documented as of this encounter Plan of Treatment Upcoming Encounters Date Type Department Care Team (Late st Contact Info) Description 08/05/2025 2:30 PM CDT Office Visit [facility] Vascular and Vein Surgery [address] [place] [address] [place] [address] [place] [address] [address] [place] [address] documented as of this encounter Procedures Procedure Name Priority Date/Time Associated Diagnosis Comments CARDIOLOGY REPORT 12/04/2016 documented in this encounter Results * CARDIOLOGY REPORT (12/04/2016) Anatomical Region Laterality Modality Other Narrative 12/04/2016 Ordered by an unspecified provider. us Historical Provider [facility] ANNETTE FERREIRA Final Result documented in this encounter Visit Diagnoses Not on filedocumented in this encounter Care Teams Truck Service Technician Relationship Specialty Start Date End Date Cosme Ashton MD [address] [facility] [address] [place] [address] PCP - General 09/03/12 01/16/21 Cosme Ashton MD [address] [facility] [address] [place] [address] PCP - General 01/17/21 Panda Ashby MD [address] [facility] [address] [facility] [address] [place] [address] Surgeon Surgery 08/23/23 documented as of this encounter
--- OUTSIDE RECORDS SUMMARY | 2025-08-04 10:26 | XMS_ITS | Clinical Summary ---
Author Organization [facility] Address [address] [place] [address] Care Team Providers Care Packing Checker Name Role Phone Cosme Ashton MD Primary Care Provider [phone] Panda Ashby MD Unavailable [phone] Allergies No known active allergies Medications ascorbic acid (VITAMIN C) 1,000 mg tablet Take 1 tablet (1,000 mg total) by mouth daily Active cyanocobalamin (Vitamin B-12) 1,000 mcg tabletIndication s:Prevention of Vitamin B12 Deficiency Take 1 tablet (1,000 mcg total) by mouth daily Active allopurinoL (ZYLOPRIM) 300 mg tablet Take 1 tablet (300 mg total) by mouth daily Active aspirin 81 mg enteric coated tablet Take 1 tablet (81 mg total) by mouth daily 30 tablet 11 01/25/2021 Active atorvastatin (LIPITOR) 40 mg tabletIndication s:hyperlipidemia Take 1 tablet (40 mg total) by mouth daily 30 tablet 01/25/2021 Active lisinopriL (PRINIVIL,ZESTRI L) 20 mg tablet Take 1 tablet (20 mg total) by mouth daily 30 tablet 11 01/24/2021 Active glucosamine HCl 500 mg tablet Take by mouth Active Active Problems Problem Noted Date Diagnosed Date PVD (peripheral vascular disease) 08/14/2023 Assessment & Plan (10/23/2023 2:03 PM DATA MANAGER): Bilateral SFA stents are patent. Patient remains asymptomatic. Follow-up 6 months with duplex surveillance. Continue anti-platelet therapy. Bilateral carotid artery stenosis 07/17/2023 Assessment & Plan (09/01/2023 1:16 PM CDT): Status post left TCAR. Stent is patent. Continue yearly duplex surveillance. Continue anti-platelet therapy. Assessment & Plan (07/17/2023 3:58 PM CDT): Impression: Patient has a history of a right TCAR in 2019. She remains asymptomatic. Plan: We will have patient follow-up in 2-3 weeks for re-evaluation with carotid duplex. Atherosclerosis of [place] of both lower extremities with intermittent claudication 07/17/2023 Assessment & Plan (01/28/2025 2:58 PM CDT): Denies any claudication symptoms to either lower extremity. No rest pain. Bilateral stents remain patent. Continue aspirin and follow-up in 6 months for routine surveillance with lower extremity arterial duplex Assessment & Plan (05/21/2024 2:41 PM CDT): Impression: Patient is status post bilateral SFA stent placement. She denies any symptoms of claudication, ischemic rest pain or ulcerations. Elevated velocities are noted to the right SFA on duplex scan with patent stents to bilateral lower extremities. Plan: Discussed patient and plan of care with Dr. Harini Ashby. -no surgical interventions indicated at this time as patient remains asymptomatic. -patient to follow-up in 6 months for re-evaluation with repeat lower extremity arterial duplex. Encouraged patient to make a sooner appointment if she develops symptoms of claudication. Assessment & Plan (09/13/2023 10:47 AM CDT): Lower extremity arterial occlusive disease with limiting claudication. She is status post drug coated balloon angioplasty to left SFA for claudication on 08/23/2023. States she is recovering well and her claudication symptoms have resolved. Plan: Follow-up in 1 month with lower extremity arterial duplex. Assessment & Plan (09/01/2023 1:17 PM CDT): Patient has history of left SFA stent performed at an outside institution. Duplex findings suggest high-grade in stent restenosis. Have recommended proceeding with left lower extremity angiogram possible intervention. Procedure indications and all associated risks have been explained. Patient understands and agrees to proceed. Assessment & Plan (07/17/2023 3:58 PM CDT): Impression: Patient has a history of bilateral SFA stent placements non bite an outside facility in 2020. She denies any claudication ischemic rest pain or ulcerations to her lower extremity. Plan: Have patient follow-up in 2-3 weeks for re-evaluation with lower extremity arterial duplex. Mixed hyperlipidemia 07/17/2023 Assessment & Plan (05/21/2024 2:42 PM CDT): Impression: Chronic and stable. Plan: Continue atorvastatin Assessment & Plan (10/23/2023 2:03 PM DATA MANAGER): Hyperlipidemia chronic and controlled. Continue Lipitor. Assessment & Plan (07/17/2023 3:58 PM CDT): Impression: Chronic stable. Plan: Continue Lipitor Peripheral vascular disease 09/04/2021 Overview (09/04/2021): SP bilateral LE stenting Hemiparesis affecting right side as late effect of stroke 02/27/2021 Essential hypertension 02/27/2021 Assessment & Plan (05/21/2024 2:41 PM CDT): Impression: Chronic stable. Plan: Continue lisinopril Assessment & Plan (10/23/2023 2:03 PM DATA MANAGER): Hypertension chronic and controlled. Continue current medical management. Assessment & Plan (09/01/2023 1:17 PM CDT): Hypertension chronic and controlled. Continue medical management. Assessment & Plan (07/17/2023 3:58 PM CDT): Impression: Chronic and stable. 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 DCBA SFA Medical History Medical History Date Comments Hypertension Hypertension Adiposity Obesity Family History Medical History Relation Name Comments Heart attack Father Myocardial Infa rction; Cause of : Myocardial Infarction Heart attack Son 2 Myocardial Infa rction; Cause of : Myocardial Infarction Relation Name Status Comments Father Son 1 (Age 24) Son 2 Social History Tobacco Use Types Packs/Day Years Used Date Smoking Tobacco: Former Cigarettes 0 11/19/1959 - 11/19/1968 Smokeless Tobacco: Never Alcohol Use Standard Drinks/Week Comments No 0 (1 standard drink = 0.6 oz pur e alcohol) PHQ-2 Answer Date Recorded PHQ-2 Total Score 0 01/24/2021 Personal Safety Answer Date Recorded Have you ever been in or are you currently in a harmful physical or emotional relationship or is someone making you feel afraid or unsafe? Denies 08/23/2023 Comments No Sex and Gender Information Value Date Recorded Sex Assigned at Not on file Legal Sex Female 2:37 AM DATA MANAGER Gender Identity Not on file Sexual Orientation Not on file Obstetrics History Last Filed Vital Signs Vital Sign Reading Time Taken Comments Blood Pressure 159/94 01/28/2025 2:21 PM CDT Pulse 89 01/28/2025 2:21 PM CDT Temperature 36.6 C (97.8 F) 08/23/2023 4:05 PM CDT Respiratory Rate 16 08/23/2023 7:05 PM CDT Oxygen Saturation 97% 08/23/2023 7:05 PM CDT Inhaled Oxygen Concentration - - Weight 71.2 kg (157 lb) 01/28/2025 2:21 PM CDT Height 144.8 cm (4' 9) 01/28/2025 2:21 PM CDT Body Mass Index 33.97 01/28/2025 2:21 PM CDT Plan of Treatment Upcoming Encounters Date Type Department Care Team (Late st Contact Info) Description 08/05/2025 2:30 PM CDT Office Visit [facility] Vascular and Vein Surgery [address] [place] [address] Panda Ashby MD [address] [place] [address] [address] [place] [address] Health Maintenance Due Date Last Done Comments Osteoporosis Screening-Bone Density Scan 1945 DTaP/Tdap/Td Vaccine (1 - Tdap) 1954 Hepatitis B Screening 1961 Pneumococcal vaccine 65+ (1 of 1 - PCV) 1993 Zoster Vaccine (1 of 2) 1993 Well Visit 65+ 2008 Depression Screening 01/16/2022 01/16/2021, 01/17/20 21 Fall Risk Assessment 08/23/2024 08/23/2023 Influenza Vaccine (#1) 2025 Medical Devices Implanted Type Area Gig Tender Device Identifier Shelf Expiration Date Model / Serial / Lot [email or web address] Dario [id number] Device Closure Angio-Seal Vip Bondek-Plus Polyglyd L70 Cm Od6 Fr Odsec.035 In Vascular - [id number] Implanted:Qty: 1 on 01/20/2021 at [facility] Right: Femoral [employer] Dario [id number] / / [employer] [id number] Protege Rx Exprt Gps 6mm 6fr 20mm 135cm Rapid Exchange Self - [id number] Implanted:Qty: 1 on 01/20/2021 at [facility] Left: Femoral [employer] 05/24/2021 [id number]-[id number] / / [id number] [employer] Device Clsr Perclose Prostyle Sut-Mediatd Closure-Repair Sys [id number] - [id number] Implanted:Qty: 1 on 08/23/2023 by Panda Ashby MD at [facility] [employer] 05/10/2024 [id number] / / [id number] Insurance MEDICARE MEDICARE [facility] MEDICARE [facility] MEDICARE [facility] Advance Directives For more information, please contact: [phone] * Full Code (Latest Code Status on File) Date Activated Date Inactivated Comments 04/18/2021 12:52 PM 04/18/2021 6:56 PM * Full Code Date Activated Date Inactivated Comments 01/17/2021 2:43 AM 01/24/2021 10:18 PM Care Teams Packing Checker Relationship Specialty Start Date End Date Cosme Ashton MD [address] [facility] [facility] [address] [place] [address] PCP - General 01/17/21 Panda Ashby MD [address] [facility] [address] [facility] [address] [place] [address] Surgeon Surgery 08/23/23
== END 2025-08-04 09:41 | disposition home or self-care (01) ==
LOC: ANHCARD 09:43
PROVIDERS: PCP Internal Medicine; Visit Provider Internal Medicine Cardiovascular Disease
DX: I42.1 Obstructive hypertrophic cardiomyopathy (principal)
CPT/HCPCS: 93306